=== PATIENT | female | born 1965 | race Caucasian/White ===

== ENCOUNTER 2016-05-18 10:35 | Inpatient (IN) | payer BC, OTHER ==
[~2016-05-18] VITALS: Ht 167.6 cm; Wt 77.1 kg
[2016-05-18 11:41] LABS: BASO # 0.1 x10^3/uL (0.0-0.2); BASO % 1 % (0-3); EOS % 2 % (0-3); HEMATOCRIT 38.7 % (36.0-47.0); HEMOGLOBIN 13.3 g/dL (12.0-15.5); LYMPH # 2.3 x10^3/uL (1.0-4.8); LYMPH % 21 % (24-48); MEAN CORPUSCULAR HEMOGLOBIN 33 pg (25-35); MEAN CORPUSCULAR HGB CONC 34 g/dL (31-37); MEAN CORPUSCULAR VOLUME 95 fL (79-100); MONO % 11 % (0-9); NEUT % 65 % (31-73); PLATELET COUNT 240 x10^3/uL (140-400); RED BLOOD COUNT 4.08 x10^6/uL (3.50-5.40); RED CELL DISTRIBUTION WIDTH 13.8 % (11.5-14.5)
[2016-05-18 11:42] LABS: BILIRUBIN,URINE NEGATIVE (NEG); GLUCOSE,URINE 250 mg/dL (NEG); NITRITE,URINE NEGATIVE (NEG); PH,URINE 6.5; PROTEIN,URINE NEGATIVE (NEG-TRACE)
[2016-05-18] MEDS ORDERED: IV NORMAL SALINE 1000ML BAG 1,000 ML IV ONE (11:45)
[2016-05-18] MEDS ORDERED: FENTANYL PF 100 MCG/2 ML VIAL. IV ONE (11:45)
[2016-05-18] MEDS ORDERED: METOCLOPRAMIDE HCL 10 MG/2 ML VIAL. IV ONE (11:45)
[2016-05-18 11:52] LABS: BACTERIA,URINE MANY /HPF (0-FEW); SQUAMOUS EPITHELIAL CELL,UR FEW /LPF
[2016-05-18 11:58] LABS: CALCIUM 10.1 mg/dL (8.5-10.1); CREATININE 0.6 mg/dL (0.6-1.0); GFR 106.7; POTASSIUM 3.8 mmol/L (3.5-5.1)
--- NOTE | 2016-05-18 11:58 | EKG ---
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
[2016-05-18 12:06] LABS: ALBUMIN 3.5 g/dL (3.4-5.0); ALBUMIN/GLOBULIN RATIO 0.6 (1.0-1.7); TOTAL BILIRUBIN 0.9 mg/dL (0.2-1.0); TOTAL PROTEIN 9.1 g/dL (6.4-8.2)
[2016-05-18 12:07] LABS: NEG OBC UR NEG; POS OBC UR POS
[2016-05-18] MEDS ORDERED: IOHEXOL 300 MG/ML 75 ML VIAL IV ONE (12:15)
--- NOTE | 2016-05-18 12:16 | PHYS DOC ---
Past Medical History Past Medical History: CAD, Diabetes-Type II, Hypertension, Migraines Past Surgical History: Other Additional Past Surgical Histo: heart stent, ovarian cyst Alcohol Use: Heavy Drug Use: None Adult General Chief Complaint Chief Complaint: ABDOMINAL PAIN HPI HPI Patient is a 50 year old male presents emergency department stating that she developed left upper quadrant abdominal pain at 10:30 last night. She denies any nausea or vomiting. She states the pain is a sharp pain that is just in the left upper quadrant she denies any radiation. She has not taken anything to help with the pain or discomfort. She states that she has had the pain in the past approximately 3 years ago but does not know what the diagnosis was. She does state she was hospitalized for it although it was not here. Patient denies any history of pancreatitis she denies any history of any abdominal issues. Patient does state that she's had an ovarian cyst in the past. Patient denies any further fever, chills she does state her last bowel movement was yesterday. Review of Systems Review of Systems Constitutional: Denies fever or chills [] Eyes: Denies change in visual acuity, redness, or eye pain [] HENT: Denies nasal congestion or sore throat [] Respiratory: Denies cough or shortness of breath [] Cardiovascular: No additional information not addressed in HPI [] GI:abdominal pain,denies nausea, vomiting, bloody stools or diarrhea [] : Denies dysuria or hematuria [] Musculoskeletal: Denies back pain or joint pain [] Integument: Denies rash or skin lesions [] Neurologic: Denies headache, focal weakness or sensory changes [] Current Medications Current Medications Current Medications Medications (Trade) Dose Ordered Sig/Ana Start Time Stop Time Status Last Admin Dose Admin Dicyclomine HCl (Bentyl) 10 mg 1X ONCE 05/18/16 14:00 05/18/16 14:01 DC 05/18/16 14:11 10 MG Fentanyl Citrate (Fentanyl 2ml Vial) 50 mcg PRN Q15MIN PRN 05/18/16 12:30 05/19/16 12:29 Info (Do NOT chart on this entry -- for MONITORING) 1 each PRN DAILY PRN 05/18/16 12:30 05/20/16 12:29 Iohexol (Omnipaque 300 Mg/ml) 75 ml 1X ONCE 05/18/16 12:15 05/18/16 12:16 DC 05/18/16 12:34 75 ML Metoclopramide HCl (Reglan) 10 mg 1X ONCE 05/18/16 11:45 05/18/16 11:46 DC 05/18/16 11:48 10 MG Sodium Chloride (Iv Sodium Chloride 0.9% 1000ml Bag) 1,000 ml @ 1,000 mls/hr 1X ONCE 05/18/16 11:45 05/18/16 12:44 DC 05/18/16 11:46 1,000 MLS/HR Allergies Allergies Allergies Coded Allergies Type Severity Reaction Last Updated Verified No Known Drug Allergies 08/12/14 No Physical Exam Physical Exam Constitutional: Well developed, well nourished, no acute distress, non-toxic appearance. [] HENT: Normocephalic, atraumatic, bilateral external ears normal, oropharynx moist, no oral exudates, nose normal. [] Eyes: PERRLA, EOMI, conjunctiva normal, no discharge. [] Neck: Normal range of motion, no tenderness, supple, no stridor. [] Cardiovascular:Heart rate regular rhythm, no murmur [] Lungs & Thorax: Bilateral breath sounds clear to auscultation [] Abdomen: Bowel sounds hypoactive, soft, and realized abdominal discomfort although increased tenderness noted in the left upper quadrant, no masses, no pulsatile masses. She was also noted to have guarding with no rebound tenderness noted. She does appear to be distended Skin: Warm, dry, no erythema, no rash. [] Back: No tenderness Extremities: No tenderness, no cyanosis, no clubbing, ROM intact, no edema. [] Neurologic: Alert and oriented X 3, normal motor function, normal sensory function, no focal deficits noted. [] Psychologic: Affect normal, judgement normal, mood normal. [] Current Patient Data Vital Signs Vital Signs Date Time Temp Pulse Resp B/P Pulse Ox O2 Delivery O2 Flow Rate FiO2 05/18/16 15:00 86 14 146/69 99 Room Air 05/18/16 10:41 97.7 97.7 Lab Values Laboratory Tests Test 05/18/16 10:58 05/18/16 11:05 White Blood Count 11.0x10^3/uL (4.0-11.0) Red Blood Count 4.08x10^6/uL (3.50-5.40) Hemoglobin 13.3g/dL (12.0-15.5) Hematocrit 38.7% (36.0-47.0) Mean Corpuscular Volume 95fL (79-100) Mean Corpuscular Hemoglobin 33pg (25-35) Mean Corpuscular Hemoglobin Concent 34g/dL (31-37) Red Cell Distribution Width 13.8% (11.5-14.5) Platelet Count 240x10^3/uL (140-400) Neutrophils (%) (Auto) 65% (31-73) Lymphocytes (%) (Auto) 21% (24-48) L Monocytes (%) (Auto) 11% (0-9) H Eosinophils (%) (Auto) 2% (0-3) Basophils (%) (Auto) 1% (0-3) Neutrophils # (Auto) 7.1x10^3uL (1.8-7.7) Lymphocytes # (Auto) 2.3x10^3/uL (1.0-4.8) Monocytes # (Auto) 1.2x10^3/uL (0.0-1.1) H Eosinophils # (Auto) 0.2x10^3/uL (0.0-0.7) Basophils # (Auto) 0.1x10^3/uL (0.0-0.2) Sodium Level 132mmol/L (136-145) L Potassium Level 3.8mmol/L (3.5-5.1) Chloride Level 93mmol/L (98-107) L Carbon Dioxide Level 30mmol/L (21-32) Anion Gap 9 (6-14) Blood Urea Nitrogen 7mg/dL (7-20) Creatinine 0.6mg/dL (0.6-1.0) Estimated GFR (Cockcroft-Gault) 106.7 BUN/Creatinine Ratio 12 (6-20) Glucose Level 248mg/dL (70-99) H Calcium Level 10.1mg/dL (8.5-10.1) Total Bilirubin 0.9mg/dL (0.2-1.0) Aspartate Amino Transferase (AST) 65U/L (15-37) H Alanine Aminotransferase (ALT) 48U/L (14-59) Alkaline Phosphatase 105U/L (46-116) Total Protein 9.1g/dL (6.4-8.2) H Albumin 3.5g/dL (3.4-5.0) Albumin/Globulin Ratio 0.6 (1.0-1.7) L Amylase Level 28U/L (25-115) Lipase 225U/L (73-393) Urine Collection Type Unknown Urine Color Yellow Urine Clarity Clear Urine pH 6.5 Urine Specific [place] 1.010 Urine Protein Negativemg/dL (NEG-TRACE) Urine Glucose (UA) 250mg/dL (NEG) Urine Ketones (Stick) Negativemg/dL (NEG) Urine Blood Moderate (NEG) Urine Nitrite Negative (NEG) Urine Bilirubin Negative (NEG) Urine Urobilinogen Dipstick 1.0mg/dL (0.2 mg/dL) Urine Leukocyte Esterase Trace (NEG) Urine RBC 1-2/HPF (0-2) Urine WBC 5-10/HPF (0-4) Urine Squamous Epithelial Cells Few/LPF Urine Bacteria Many/HPF (0-FEW) Urine Mucus Slight/LPF Urine Test Negative (NEG) Laboratory Tests 05/18/16 10:58 Laboratory Tests 05/18/16 10:58 EKG EKG [] Radiology/Procedures Radiology/Procedures [] [facility] [address] [place], [place] [id number] IMAGING REPORT Signed PATIENT: CAROLYN LU ACCOUNT: [id number] : 1965 LOCATION: ER AGE: 50 SEX: F EXAM STATUS: REG ER ORD. PHYSICIAN: ANY HASTINGS APRN REASON: abdominal pain with tenderness left upper quad PROCEDURE: ABD PELV W/ IV CONTRAST ONLY Indication: Severe left upper quadrant pain beginning last night. Technique: Axial images and coronal and sagittal reformatted images are provided. 75 mL of intravenous Omnipaque 300 was administered without complication. No comparison is available. One or more of the following individualized dose reduction techniques were utilized for this examination: 1. Automated exposure control 2. Adjustment of the mA and/or kV according to patient size 3. Use of iterative reconstruction technique Findings: There is atelectasis in the lung bases. There is no pleural effusion. Heart is upper limits of normal in size. Coronary artery calcifications are noted. There is fatty infiltration of an enlarged liver. Gallbladder is unremarkable. Spleen measures 12.5 cm oblique craniocaudal. Pancreas and right adrenal are unremarkable. Left adrenal nodule measures 12 mm in size. There is nonspecific stranding in the perinephric fat. There is a probable cyst in the upper pole of the right kidney measuring 14 mm. There is atheromatous disease in the abdominal aorta without aneurysm. Lack of oral contrast limits evaluation of bowel. There is no small bowel obstruction or mural thickening. Colon is unremarkable. Normal appendix is noted. Bladder is unremarkable. There is no adnexal mass. Tampon is present. Calcified phleboliths are noted. There are degenerative changes in the spine. Impression: 1. Fatty infiltration of an enlarged liver. 2. Borderline splenomegaly. 3. Coronary artery calcifications. Course & Med Decision Making Course & Med Decision Making Pertinent Labs and Imaging studies reviewed. (See chart for details) [id number] Mclain will continue with patient's care. She is aware of the lab results. She is aware the pending CT. I assumed care of this patient as stated from nurse practitioner Any. On reevaluation, patient continues to complain of left upper quadrant abdominal pain, with some mild abdominal distention. CT of abdomen and pelvis obtained, not reveal any evidence of acutely concerning findings. Patient's laboratory studies were otherwise not significantly concerning. I did discuss these things the patient, patient's age she still sprinting pain, she received oral medication the ED, and reevaluation she continues to complain of significant discomfort. She states that she had a similar episode several years ago at [facility], and was evaluated by GI over she is not certain what findings were identified. She states that they did not find a specific cause and cannot recall which was given. Patient has not followed with GI since that time. Due to the patient's persistent discomfort, she is agreeable for [facility] and consultation with GI. Records were requested from [facility]. Findings as above were discussed with Dr. eBth of internal medicine, patient was accepted to her service as an an observation admission to the medical surgical floor, with symptom management with Toradol, IV fluids, antiemetics, and consultation with GI, bridge orders entered as stated. Isabelle Disclaimer Dragon Disclaimer This electronic medical record was generated, in whole or in part, using a voice recognition dictation system. Departure Impression: Primary Impression: Abdominal pain Disposition: 09 ADMITTED INPATIENT Admitting Physician: Other Condition: IMPROVED Referrals: NO PCP (PCP) Departure Departure Impression: Primary Impression: Abdominal pain Disposition: 09 ADMITTED INPATIENT Condition: IMPROVED Referrals: NO PCP (PCP) ANY HASTINGS NP May 18, 2016 12:16 MODESTO MCLAIN DO May 18, 2016 19:36
[2016-05-18] MEDS ORDERED: CONTRAST GIVEN MC PRN (12:30)
[2016-05-18] MEDS ORDERED: FENTANYL PF 100 MCG/2 ML VIAL. IV PRN (12:30)
--- NOTE | 2016-05-18 12:57 | RAD ---
Indication: Severe left upper quadrant pain beginning last night. Technique: Axial images and coronal and sagittal reformatted images are provided. 75 mL of intravenous Omnipaque 300 was administered without complication. No comparison is available. One or more of the following individualized dose reduction techniques were utilized for this examination: 1. Automated exposure control 2. Adjustment of the mA and/or kV according to patient size 3. Use of iterative reconstruction technique Findings: There is atelectasis in the lung bases. There is no pleural effusion. Heart is upper limits of normal in size. Coronary artery calcifications are noted. There is fatty infiltration of an enlarged liver. Gallbladder is unremarkable. Spleen measures 12.5 cm oblique craniocaudal. Pancreas and right adrenal are unremarkable. Left adrenal nodule measures 12 mm in size. There is nonspecific stranding in the perinephric fat. There is a probable cyst in the upper pole of the right kidney measuring 14 mm. There is atheromatous disease in the abdominal aorta without aneurysm. Lack of oral contrast limits evaluation of bowel. There is no small bowel obstruction or mural thickening. Colon is unremarkable. Normal appendix is noted. Bladder is unremarkable. There is no adnexal mass. Tampon is present. Calcified phleboliths are noted. There are degenerative changes in the spine. Impression: 1. Fatty infiltration of an enlarged liver. 2. Borderline splenomegaly. 3. Coronary artery calcifications.
[2016-05-18] MEDS ORDERED: DICYCLOMINE HCL 10 MG CAPSULE PO ONE (14:00)
[2016-05-18] MEDS ORDERED: ONDANSETRON PF 4 MG/2 ML VIAL. IV PRN (17:00)
[2016-05-18] MEDS ORDERED: KETOROLAC 15 MG/ML VIAL. IV PRN (17:00)
[2016-05-18] MEDS ORDERED: ACETAMINOPHEN 325 MG TABLET. PO PRN (17:00)
--- NOTE | 2016-05-18 17:20 | ACF ---
Admission Forms Criteria ABDOMINAL PAIN Clinical Indications for Admission to Inpatient Care (Place 'X' for any and all applicable criteria): Admission is indicated for ANY ONE of the following(1)(2)(3)(4)(5): [X]I. Inpatient admission required rather than observation care (Also use Abdominal Pain: Observation Care, as appropriate) because of ANY ONE of the following: [X]a) Severe pain requiring acute inpatient management [ ]b) Identification of etiology/finding that requires inpatient care (eg, aortic dissection, free air) [ ]c) Absent bowel sounds with complete ileus(6) [ ]d) Suspected toxic megacolon [ ]e) Severe electrolyte abnormalities requiring inpatient care [ ]f) High fever or infection requiring inpatient admission as indicated by ANY ONE of following(7)(8): [ ] i) Appropriate outpatient or observational care antimicrobial treatment unavailable, not effective, or not feasible [ ] ii) Documented bacteremia [ ] iii) Temperature > 104.9 degrees F (oral) [ ] iv) T >103.1 F (oral) or < 96.8 F(rectal) that does not respond to all emergency treatment measures [ ]g) Signs of intestinal obstruction [B] [ ]h) Hemodynamic instability [ ]i) IV fluid to replace significant ongoing losses (greater than 3 L/m2 per day) (12)(13) [ ]j) Percutaneous or open drainage (eg, abscess, biliary tract ) procedures [ ]k) Parenteral nutrition regimen that must be implemented on inpatient basis [ ]l) Other condition,treatment or monitoring requiring inpatient admission. [ ]II. Peritoneal signs present [ ]III. Surgery needed that cannot be performed on an ambulatory basis. [ ]IV. Evaluation requires patient to not eat or drink for extended period ( eg, more than 24 hours). [ ]V. Contraindications and/or Inappropriate clinical situations for Observational Care in patients with abdominal pain, when ANY ONE of the following is required: [ ]a) Thorough evaluation is required to prevent catastrophic events due to delays in diagnosing (e.g.Mesenteric ischemia) 1,3 [ ]b) Patient with severe pathology or with chronic symptoms unlikely to improve in the ED stay (3) [ ]. General contraindications and/or Inappropriate clinical situations for Observational Care in patients with abdominal pain, when ANY ONE of the following is required: [ ]a) Prediction of prolongation of LOS based on ANY ONE of the following may be considered as a contraindication for observational care 2, 3, 4, 5, 6, 7, 8, 9, 10, 11 [ ]i) Age > 65 yrs. [ ]ii) Patient arriving by ambulance [ ]iii) Patient with high acuity [ ]iv) Patient requiring vital sign monitoring [ ]v) Patient on IV medication [ ]b) Systolic blood pressures 180mmHg 3,12 [ ]c) Patient with altered mental status including delirium and other alteration of consciousness, (3) [ ]d) Patient whose discharge disposition will be to a custodial home or rehabilitation home should not be managed in Emergency Department Observation Unit. CMS rule requires 3 days hospital stay before such placement.3,13 [ ]e) Patient with failure to thrive due to broad array of etiologies 3,16,17 [ ]f) Inability to ambulate 3,14 Extended stay beyond goal length of stay may be needed for(2)(3): [ ]a) Persistent abdominal pain with suspected intra-abdominal process [ ]b) Diagnosed condition requiring continued stay (e.g., pancreatitis, complicated diverticulitis) [ ]c) Surgery (e.g., colectomy) The original [facility] content created by [employer] has been revised. The portions of the content which have been revised are identified through the use of italic text or in bold, and [facility] has neither reviewed nor approved the modified material.All other unmodified content is copyright [employer]. Please see references footnoted in the original [facility] edition 2016 Admission Criteria Met?: Yes NELSON RAMIREZ May 18, 2016 17:20
[2016-05-18 20:30] VITALS: BP 130/72
[2016-05-18] MEDS: LORAZEPAM 1 MG TABLET. PO SCH (21:30)
--- NOTE | 2016-05-18 22:54 | HP ---
ADMIT DATE: 05/18/2016 CHIEF COMPLAINT: Left upper quadrant abdominal pain. HISTORY OF PRESENT ILLNESS: The patient is a 50-year-old woman with history of diabetes mellitus, CAD, hypertension who presented to the Emergency Room with left upper quadrant pain, which started late last night. She relates that it is in the left upper quadrant, sharp, stabbing, unrelenting, but not accompanied by nausea, vomiting or diarrhea. She denies any recent fevers or chills. She actually had a similar episode 3-5 years ago when she was admitted to an outside facility. She relates that extensive workup was undertaken then without finding of any specific cause. Symptoms then essentially abated by themselves. On further questioning, the patient admits to regular alcohol use, her partner actually explained that she drinks about a gallon a week, which she minimizes. She is also a smoker, but denies any other drugs. PAST MEDICAL HISTORY: CAD, status post stent placement in 2003, has not had any followup since. Hypertension, not taking any medications. Diabetes, which she qualifies as borderline, but does not monitor blood sugars nor takes medications. She does admit to migraines, has a history of ovarian cyst. FAMILY HISTORY: Positive for heart disease and COPD. SOCIAL HISTORY: Smokes about a pack a day, drinks excessively per spouse, one gallon of rum a week. 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 ALLERGIES: No known drug allergies. MEDICATIONS AT HOME: None. REVIEW OF SYSTEMS: Positive as per HPI. Denies any nausea, vomiting, diarrhea. No fevers, chills, no respiratory symptoms. Rest of organ system review is negative. PHYSICAL EXAMINATION: VITAL SIGNS: From today show a blood pressure of 143/65, heart rate of 86, respiratory rate at 19. She is afebrile. GENERAL: This is a 50-year-old woman, ill-appearing, alert and oriented, in no acute distress. HEENT: Shows no scleral icterus. NECK: Supple. LUNGS: Clear bilaterally. HEART: Regular rate and rhythm. ABDOMEN: Massively distended, soft. Tenderness to palpation in the left upper quadrant, some in the left lower. No organomegaly or masses could be appreciated. EXTREMITIES: Show no edema. SKIN: Warm, soft and dry without any rash. LABORATORY DATA: CBC with a WBC of 11.0, hemoglobin 13.3, platelets of 240 and normal differential. BUN and creatinine of 7 and 0.6, sodium at 132, potassium at 3.8, glucose 248, AST of 65, ALT of 48. Total bilirubin and alkaline phosphatase within normal limits. Total protein at 9.1 and albumin of 3.5. Amylase and lipase within normal limits. Urine dip shows 5-10 wbc and many bacteria, question dirty collection. IMAGING STUDIES: CT of the abdomen and pelvis reveals fatty infiltration of an enlarged liver, borderline splenomegaly. There is an adrenal nodule of 12 mm on the left, nonspecific stranding in the perinephric fat, probable cyst in the right kidney, atheromatous disease in the abdominal aorta without aneurysm as well as coronary artery calcifications noted. ASSESSMENT AND PLAN: The patient is a 50-year-old alcoholic who is noncompliant with her regimen including for potentially serious diseases of diabetes mellitus and heart disease. She presents now with abdominal pain. 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 I will place her on PPI, put her on clear liquids for the time being and Carafate to her regimen. For her diabetes mellitus, we will obtain hemoglobin A1c as baseline. We will start her with insulin for now. Potential of switching to p.o. Heart disease is known by history as well as evident on CT. Should be on a beta letty and ZO inhibitor for kidney and heart protection as well as hypertension. We will get those started in the morning. She does drink alcohol excessively. States she never has had withdrawal symptoms including at her hospitalization several years ago. Nevertheless, we will be cautious and start prophylactic benzodiazepine. CUAUHTEMOC BAZAN MD DR: BRINA/luann JOB#: [id number] / [id number] TAYLOR
[2016-05-18 23:00] VITALS: BP 126/68
[2016-05-19] MEDS: SUCRALFATE 1 GM TABLET. PO SCH ×5 (00:39→20:14)
[2016-05-19] MEDS: CEFTRIAXONE SODIUM 2 GM in IV NORMAL SALINE 100ML 100 ML IV SCH ×2 (00:39→20:15)
[2016-05-19] MEDS: LORAZEPAM 1 MG TABLET. PO SCH ×4 (03:30→20:24)
[2016-05-19 03:42] VITALS: BP 134/79
[2016-05-19 07:00] VITALS: BP 118/67
[2016-05-19 07:08] LABS: BASO # 0.1 x10^3/uL (0.0-0.2); BASO % 1 % (0-3); EOS % 2 % (0-3); HEMATOCRIT 35.3 % (36.0-47.0); HEMOGLOBIN 11.7 g/dL (12.0-15.5); LYMPH # 1.9 x10^3/uL (1.0-4.8); LYMPH % 23 % (24-48); MEAN CORPUSCULAR HEMOGLOBIN 32 pg (25-35); MEAN CORPUSCULAR HGB CONC 33 g/dL (31-37); MEAN CORPUSCULAR VOLUME 97 fL (79-100); MONO % 11 % (0-9); NEUT % 63 % (31-73); PLATELET COUNT 205 x10^3/uL (140-400); RED BLOOD COUNT 3.64 x10^6/uL (3.50-5.40); RED CELL DISTRIBUTION WIDTH 13.9 % (11.5-14.5); WHITE BLOOD COUNT 8.3 x10^3/uL (4.0-11.0)
[2016-05-19 07:28] LABS: CALCIUM 8.8 mg/dL (8.5-10.1); CREATININE 0.6 mg/dL (0.6-1.0); GFR 106.7; POTASSIUM 4.6 mmol/L (3.5-5.1)
[2016-05-19] MEDS: PANTOPRAZOLE 40 MG TABLET. PO SCH ×2 (08:42→16:30)
[2016-05-19] MEDS: MULTIVIT INFUSN,ADULT 4,VIT K 10 ML, THIAMINE 100 MG, FOLIC ACID 1 MG in IV NORMAL SALI... IV SCH (09:48)
--- NOTE | 2016-05-19 10:35 | PDOC2 ---
ASHISH DURAN 05/19/16 1035: GI CONSULT Reason For Consult: Abd pain HPI: HPI: 50 y/o female admitted through ER w/ LUQ pain. H/o similar (but less severe pain) ~3 years ago, reports MRI and CT at [facility] were unrevealing. Pain recurred on 05/16. Worse w/ moving, coughing, and deep breaths. H/o occasional heartburn related to eating tomatoes/red sauce, relieved w/ Tums PRN. Has been bloated lately and using Gas-X. Denies n/v, diarrhea, constipation, weight loss , change in appetite, hematochezia, melena. CT w/ fatty liver, borderline splenomegaly. Labs fairly unrevealing. Kept to clear liquids, started on PPI and Carafate. PMH: PMH: CAD w/ stent years ago, HTN, DM, heartburn, ovarian cystectomy FH: Family History: No pertinent hx (denies GI cancers) Social History: Smoke: <1 pack per day ALCOHOL: other (tells me 2 drinks daily (rum)) Drugs: None ROS: GEN: Denies fevers, chills, sweats HEENT: Denies blurred vision, sore throat CV: Denies chest pain RESP: Denies shortness of air, cough GI: Per HPI : Denies hematuria, dysuria ENDO: Denies weight changes NEURO: Denies confusion, dizziness MSK: Denies weakness, joint pain/swelling SKIN: Denies jaundice, pruritus VItals: Vitals: Vital Signs Date Time Temp Pulse Resp B/P Pulse Ox O2 Delivery O2 Flow Rate FiO2 05/19/16 07:00 98.2 80 14 118/67 96 Room Air 98.2 Labs: Labs: Laboratory Tests Test 05/18/16 10:58 05/18/16 11:05 05/18/16 20:31 05/19/16 06:40 White Blood Count 11.0x10^3/uL (4.0-11.0) 8.3x10^3/uL (4.0-11.0) Red Blood Count 4.08x10^6/uL (3.50-5.40) 3.64x10^6/uL (3.50-5.40) Hemoglobin 13.3g/dL (12.0-15.5) 11.7g/dL (12.0-15.5) Hematocrit 38.7% (36.0-47.0) 35.3% (36.0-47.0) Mean Corpuscular Volume 95fL (79-100) 97fL (79-100) Mean Corpuscular Hemoglobin 33pg (25-35) 32pg (25-35) Mean Corpuscular Hemoglobin Concent 34g/dL (31-37) 33g/dL (31-37) Red Cell Distribution Width 13.8% (11.5-14.5) 13.9% (11.5-14.5) Platelet Count 240x10^3/uL (140-400) 205x10^3/uL (140-400) Neutrophils (%) (Auto) 65% (31-73) 63% (31-73) Lymphocytes (%) (Auto) 21% (24-48) 23% (24-48) Monocytes (%) (Auto) 11% (0-9) 11% (0-9) Eosinophils (%) (Auto) 2% (0-3) 2% (0-3) Basophils (%) (Auto) 1% (0-3) 1% (0-3) Neutrophils # (Auto) 7.1x10^3uL (1.8-7.7) 5.3x10^3uL (1.8-7.7) Lymphocytes # (Auto) 2.3x10^3/uL (1.0-4.8) 1.9x10^3/uL (1.0-4.8) Monocytes # (Auto) 1.2x10^3/uL (0.0-1.1) 0.9x10^3/uL (0.0-1.1) Eosinophils # (Auto) 0.2x10^3/uL (0.0-0.7) 0.2x10^3/uL (0.0-0.7) Basophils # (Auto) 0.1x10^3/uL (0.0-0.2) 0.1x10^3/uL (0.0-0.2) Sodium Level 132mmol/L (136-145) 138mmol/L (136-145) Potassium Level 3.8mmol/L (3.5-5.1) 4.6mmol/L (3.5-5.1) Chloride Level 93mmol/L (98-107) 101mmol/L (98-107) Carbon Dioxide Level 30mmol/L (21-32) 27mmol/L (21-32) Anion Gap 9 (6-14) 10 (6-14) Blood Urea Nitrogen 7mg/dL (7-20) 11mg/dL (7-20) Creatinine 0.6mg/dL (0.6-1.0) 0.6mg/dL (0.6-1.0) Estimated GFR (Cockcroft-Gault) 106.7 106.7 BUN/Creatinine Ratio 12 (6-20) Glucose Level 248mg/dL (70-99) 186mg/dL (70-99) Calcium Level 10.1mg/dL (8.5-10.1) 8.8mg/dL (8.5-10.1) Total Bilirubin 0.9mg/dL (0.2-1.0) Aspartate Amino Transf (AST/SGOT) 65U/L (15-37) Alanine Aminotransferase (ALT/SGPT) 48U/L (14-59) Alkaline Phosphatase 105U/L (46-116) Total Protein 9.1g/dL (6.4-8.2) Albumin 3.5g/dL (3.4-5.0) Albumin/Globulin Ratio 0.6 (1.0-1.7) Amylase Level 28U/L (25-115) Lipase 225U/L (73-393) Urine Collection Type Unknown Urine Color Yellow Urine Clarity Clear Urine pH 6.5 Urine Specific [place] 1.010 Urine Protein Negativemg/dL (NEG-TRACE) Urine Glucose (UA) 250mg/dL (NEG) Urine Ketones (Stick) Negativemg/dL (NEG) Urine Blood Moderate (NEG) Urine Nitrite Negative (NEG) Urine Bilirubin Negative (NEG) Urine Urobilinogen Dipstick 1.0mg/dL (0.2 mg/dL) Urine Leukocyte Esterase Trace (NEG) Urine RBC 1-2/HPF (0-2) Urine WBC 5-10/HPF (0-4) Urine Squamous Epithelial Cells Few/LPF Urine Bacteria Many/HPF (0-FEW) Urine Mucus Slight/LPF Urine Test Negative (NEG) Glucose (Fingerstick) 163mg/dL (70-99) Test 05/19/16 07:46 Glucose (Fingerstick) 187mg/dL (70-99) Allergies: Coded Allergies: No Known Drug Allergies (Unverified , 05/19/16) Medications: Current Medications Medications (Trade) Dose Ordered Sig/Ana Route PRN Reason Start Time Stop Time Status Last Admin Dose Admin Sodium Chloride (Iv Sodium Chloride 0.9% 1000ml Bag) 1,000 ml @ 1,000 mls/hr 1X ONCE IV 05/18/16 11:45 05/18/16 12:44 DC 05/18/16 11:46 Metoclopramide HCl (Reglan) 10 mg 1X ONCE IV 05/18/16 11:45 05/18/16 11:46 DC 05/18/16 11:48 Fentanyl Citrate (Fentanyl 2ml Vial) 50 mcg 1X ONCE IV 05/18/16 11:45 05/18/16 11:46 DC 05/18/16 11:47 Iohexol (Omnipaque 300 Mg/ml) 75 ml 1X ONCE IV 05/18/16 12:15 05/18/16 12:16 DC 05/18/16 12:34 Dicyclomine HCl (Bentyl) 10 mg 1X ONCE PO 05/18/16 14:00 05/18/16 14:01 DC 05/18/16 14:11 Sucralfate (Carafate) 1 gm QIDACHS PO 05/18/16 21:30 05/19/16 08:42 Pantoprazole Sodium 40 mg 40 mg BIDAC PO 05/19/16 07:30 05/19/16 08:42 Multivitamins/ Thiamine HCl/ Folic Acid/Sodium Chloride (Infuvite Adult/ Iv Sodium Chloride 0.9% 1000ml Bag) 1,011.2 ml @ 100 mls/ hr DAILY IV 05/19/16 09:00 05/24/16 08:59 05/19/16 09:48 Lorazepam 2 mg 2 mg Q6H PO 05/18/16 21:30 05/20/16 03:31 05/19/16 09:48 Ceftriaxone Sodium/Sodium Chloride (Rocephin/Iv Sodium Chloride 0.9% 100ml) 100 ml @ 200 mls/hr Q24H IV 05/18/16 21:30 05/19/16 00:39 Imaging: Imaging: CT A/P w/ IV contrast Impression: 1. Fatty infiltration of an enlarged liver. 2. Borderline splenomegaly. 3. Coronary artery calcifications. PE: GEN: NAD HEENT: Atraumatic, PERRL LUNGS: CTAB - hesitancy noted, deep breathing increases pain HEART: RRR ABD: NABS, S/ND, LUQ tenderness - particularly left sternum under ribs EXTREMITY: No edema SKIN: No rashes, no jaundice NEURO/PSYCH: A & O 3 A/P: A/P: LUQ pain -occurred 3 years ago, says CT and MRI @ [facility] unrevealing -recurred 05/16/16 -worse w/ deep breathing, moving, coughing -labs and CT as above Heartburn, bloating -occasional -uses Tums, Gas-X PRN -- Agree w/ PPI, Carafate. Plan for EGD this evening to r/o upper GI source. NPO. D/w RN, GI lab. REGLA BURNS MD 05/19/16 1804: GI CONSULT Allergies: Coded Allergies: No Known Drug Allergies (Unverified , 05/19/16) ASHISH DURAN May 19, 2016 10:35 REGLA BURNS MD May 19, 2016 18:04
[2016-05-19 11:00] VITALS: BP 131/88
--- NOTE | 2016-05-19 12:57 | PDOC ---
PROGRESS NOTES Chief Complaint Chief Complaint Abdominal pain History of Present Illness History of Present Illness No acute events overnight. Patient is resting comfortably as evaluation begins. She reports she is feeling slightly better. Vitals Vitals Vital Signs Date Time Temp Pulse Resp B/P Pulse Ox O2 Delivery O2 Flow Rate FiO2 05/19/16 11:00 98.2 93 14 131/88 98 Room Air 98.2 Physical Exam General: Alert, Cooperative, No acute distress Heart: Regular rate, No murmurs Lungs: Clear, Other (no wheezing) Abdomen: Normal bowel sounds, Soft, Other (mild tenderness to palpation, no guarding ) Extremities: No cyanosis, No edema Skin: No rashes, No significant lesion Labs LABS Laboratory Tests Test 05/18/16 20:31 05/19/16 06:40 05/19/16 07:46 05/19/16 11:48 Glucose (Fingerstick) 163mg/dL (70-99) 187mg/dL (70-99) 183mg/dL (70-99) White Blood Count 8.3x10^3/uL (4.0-11.0) Red Blood Count 3.64x10^6/uL (3.50-5.40) Hemoglobin 11.7g/dL (12.0-15.5) Hematocrit 35.3% (36.0-47.0) Mean Corpuscular Volume 97fL (79-100) Mean Corpuscular Hemoglobin 32pg (25-35) Mean Corpuscular Hemoglobin Concent 33g/dL (31-37) Red Cell Distribution Width 13.9% (11.5-14.5) Platelet Count 205x10^3/uL (140-400) Neutrophils (%) (Auto) 63% (31-73) Lymphocytes (%) (Auto) 23% (24-48) Monocytes (%) (Auto) 11% (0-9) Eosinophils (%) (Auto) 2% (0-3) Basophils (%) (Auto) 1% (0-3) Neutrophils # (Auto) 5.3x10^3uL (1.8-7.7) Lymphocytes # (Auto) 1.9x10^3/uL (1.0-4.8) Monocytes # (Auto) 0.9x10^3/uL (0.0-1.1) Eosinophils # (Auto) 0.2x10^3/uL (0.0-0.7) Basophils # (Auto) 0.1x10^3/uL (0.0-0.2) Sodium Level 138mmol/L (136-145) Potassium Level 4.6mmol/L (3.5-5.1) Chloride Level 101mmol/L (98-107) Carbon Dioxide Level 27mmol/L (21-32) Anion Gap 10 (6-14) Blood Urea Nitrogen 11mg/dL (7-20) Creatinine 0.6mg/dL (0.6-1.0) Estimated GFR (Cockcroft-Gault) 106.7 Glucose Level 186mg/dL (70-99) Calcium Level 8.8mg/dL (8.5-10.1) Review of Systems Review of Systems Denies fever or chills. Denies chest pain and shortness of breath. Assessment and Plan Assessmemt and Plan Problems Medical Problems: (1) Abdominal pain Status: Acute ASSESSMENT: Abdominal pain, no acute intra-abdominal process, likely alcoholic gastritis Fatty infiltration of liver Splenomegaly Diabetes Mellitus CAD HTN Alcohol abuse PLAN: GI has been consulted, their recommendations are appreciated Continue antibiotics Continue to monitor for alcohol withdrawal, Ativan is available if needed Trending daily labs PT/OT eval and treat Encourage alcohol cessation Problems: Comment Review of Relevant I have reviewed the following items mike (where applicable) has been applied. Labs Laboratory Tests Test 05/18/16 10:58 05/18/16 11:05 05/18/16 20:31 05/19/16 06:40 White Blood Count 11.0x10^3/uL (4.0-11.0) 8.3x10^3/uL (4.0-11.0) Red Blood Count 4.08x10^6/uL (3.50-5.40) 3.64x10^6/uL (3.50-5.40) Hemoglobin 13.3g/dL (12.0-15.5) 11.7g/dL (12.0-15.5) Hematocrit 38.7% (36.0-47.0) 35.3% (36.0-47.0) Mean Corpuscular Volume 95fL (79-100) 97fL (79-100) Mean Corpuscular Hemoglobin 33pg (25-35) 32pg (25-35) Mean Corpuscular Hemoglobin Concent 34g/dL (31-37) 33g/dL (31-37) Red Cell Distribution Width 13.8% (11.5-14.5) 13.9% (11.5-14.5) Platelet Count 240x10^3/uL (140-400) 205x10^3/uL (140-400) Neutrophils (%) (Auto) 65% (31-73) 63% (31-73) Lymphocytes (%) (Auto) 21% (24-48) 23% (24-48) Monocytes (%) (Auto) 11% (0-9) 11% (0-9) Eosinophils (%) (Auto) 2% (0-3) 2% (0-3) Basophils (%) (Auto) 1% (0-3) 1% (0-3) Neutrophils # (Auto) 7.1x10^3uL (1.8-7.7) 5.3x10^3uL (1.8-7.7) Lymphocytes # (Auto) 2.3x10^3/uL (1.0-4.8) 1.9x10^3/uL (1.0-4.8) Monocytes # (Auto) 1.2x10^3/uL (0.0-1.1) 0.9x10^3/uL (0.0-1.1) Eosinophils # (Auto) 0.2x10^3/uL (0.0-0.7) 0.2x10^3/uL (0.0-0.7) Basophils # (Auto) 0.1x10^3/uL (0.0-0.2) 0.1x10^3/uL (0.0-0.2) Sodium Level 132mmol/L (136-145) 138mmol/L (136-145) Potassium Level 3.8mmol/L (3.5-5.1) 4.6mmol/L (3.5-5.1) Chloride Level 93mmol/L (98-107) 101mmol/L (98-107) Carbon Dioxide Level 30mmol/L (21-32) 27mmol/L (21-32) Anion Gap 9 (6-14) 10 (6-14) Blood Urea Nitrogen 7mg/dL (7-20) 11mg/dL (7-20) Creatinine 0.6mg/dL (0.6-1.0) 0.6mg/dL (0.6-1.0) Estimated GFR (Cockcroft-Gault) 106.7 106.7 BUN/Creatinine Ratio 12 (6-20) Glucose Level 248mg/dL (70-99) 186mg/dL (70-99) Calcium Level 10.1mg/dL (8.5-10.1) 8.8mg/dL (8.5-10.1) Total Bilirubin 0.9mg/dL (0.2-1.0) Aspartate Amino Transf (AST/SGOT) 65U/L (15-37) Alanine Aminotransferase (ALT/SGPT) 48U/L (14-59) Alkaline Phosphatase 105U/L (46-116) Total Protein 9.1g/dL (6.4-8.2) Albumin 3.5g/dL (3.4-5.0) Albumin/Globulin Ratio 0.6 (1.0-1.7) Amylase Level 28U/L (25-115) Lipase 225U/L (73-393) Urine Collection Type Unknown Urine Color Yellow Urine Clarity Clear Urine pH 6.5 Urine Specific [place] 1.010 Urine Protein Negativemg/dL (NEG-TRACE) Urine Glucose (UA) 250mg/dL (NEG) Urine Ketones (Stick) Negativemg/dL (NEG) Urine Blood Moderate (NEG) Urine Nitrite Negative (NEG) Urine Bilirubin Negative (NEG) Urine Urobilinogen Dipstick 1.0mg/dL (0.2 mg/dL) Urine Leukocyte Esterase Trace (NEG) Urine RBC 1-2/HPF (0-2) Urine WBC 5-10/HPF (0-4) Urine Squamous Epithelial Cells Few/LPF Urine Bacteria Many/HPF (0-FEW) Urine Mucus Slight/LPF Urine Test Negative (NEG) Glucose (Fingerstick) 163mg/dL (70-99) Test 05/19/16 07:46 05/19/16 11:48 Glucose (Fingerstick) 187mg/dL (70-99) 183mg/dL (70-99) Laboratory Tests Test 05/18/16 20:31 05/19/16 06:40 05/19/16 07:46 05/19/16 11:48 Glucose (Fingerstick) 163mg/dL (70-99) 187mg/dL (70-99) 183mg/dL (70-99) White Blood Count 8.3x10^3/uL (4.0-11.0) Red Blood Count 3.64x10^6/uL (3.50-5.40) Hemoglobin 11.7g/dL (12.0-15.5) Hematocrit 35.3% (36.0-47.0) Mean Corpuscular Volume 97fL (79-100) Mean Corpuscular Hemoglobin 32pg (25-35) Mean Corpuscular Hemoglobin Concent 33g/dL (31-37) Red Cell Distribution Width 13.9% (11.5-14.5) Platelet Count 205x10^3/uL (140-400) Neutrophils (%) (Auto) 63% (31-73) Lymphocytes (%) (Auto) 23% (24-48) Monocytes (%) (Auto) 11% (0-9) Eosinophils (%) (Auto) 2% (0-3) Basophils (%) (Auto) 1% (0-3) Neutrophils # (Auto) 5.3x10^3uL (1.8-7.7) Lymphocytes # (Auto) 1.9x10^3/uL (1.0-4.8) Monocytes # (Auto) 0.9x10^3/uL (0.0-1.1) Eosinophils # (Auto) 0.2x10^3/uL (0.0-0.7) Basophils # (Auto) 0.1x10^3/uL (0.0-0.2) Sodium Level 138mmol/L (136-145) Potassium Level 4.6mmol/L (3.5-5.1) Chloride Level 101mmol/L (98-107) Carbon Dioxide Level 27mmol/L (21-32) Anion Gap 10 (6-14) Blood Urea Nitrogen 11mg/dL (7-20) Creatinine 0.6mg/dL (0.6-1.0) Estimated GFR (Cockcroft-Gault) 106.7 Glucose Level 186mg/dL (70-99) Calcium Level 8.8mg/dL (8.5-10.1) Medications Current Medications Sodium Chloride (Iv Sodium Chloride 0.9% 1000ml Bag) 1,000 ml @ 1,000 mls/hr 1X ONCE IV Last administered on 05/18/16 11:46; Start 05/18/16 at 11:45; Stop 05/18/16 at 12:44; Status DC Metoclopramide HCl (Reglan) 10 mg 1X ONCE IV Last administered on 05/18/16 11 :48; Start 05/18/16 at 11:45; Stop 05/18/16 at 11:46; Status DC Fentanyl Citrate (Fentanyl 2ml Vial) 50 mcg 1X ONCE IV Last administered on 11:47; Start 05/18/16 at 11:45; Stop 05/18/16 at 11:46; Status DC Iohexol (Omnipaque 300 Mg/ml) 75 ml 1X ONCE IV Last administered on 05/18/16 12:34; Start 05/18/16 at 12:15; Stop 05/18/16 at 12:16; Status DC Info (Do NOT chart on this entry -- for MONITORING) 1 each PRN DAILY PRN MC SEE COMMENTS; Start 05/18/16 at 12:30; Stop 05/20/16 at 12:29 Fentanyl Citrate (Fentanyl 2ml Vial) 50 mcg PRN Q15MIN PRN IV PAIN GREATER THAN 3/10; Start 05/18/16 at 12:30; Stop 05/19/16 at 12:29; Status DC Dicyclomine HCl (Bentyl) 10 mg 1X ONCE PO Last administered on 05/18/16 14:11 ; Start 05/18/16 at 14:00; Stop 05/18/16 at 14:01; Status DC Ondansetron HCl (Zofran) 4 mg PRN Q8HRS PRN IV NAUSEA/VOMITING; Start 05/18/16 at 17:00; Stop 05/19/16 at 16:59 Acetaminophen (Tylenol) 650 mg PRN Q4HRS PRN PO FEVER; Start 05/18/16 at 17:00 ; Stop 05/19/16 at 16:59 Ketorolac Tromethamine (Toradol) 10 mg PRN QID PRN IV PAIN; Start 05/18/16 at 17:00; Stop 05/23/16 at 16:59 Sucralfate (Carafate) 1 gm QIDACHS PO Last administered on 05/19/16 08:42; Start 05/18/16 at 21:30 Pantoprazole Sodium 40 mg 40 mg BIDAC PO Last administered on 05/19/16 08:42; Start 05/19/16 at 07:30 Multivitamins/ Thiamine HCl/ Folic Acid/Sodium Chloride (Infuvite Adult/ Iv Sodium Chloride 0.9% 1000ml Bag) 1,011.2 ml @ 100 mls/ hr DAILY IV Last administered on 05/19/16 09:48; Start 05/19/16 at 09:00; Stop 05/24/16 at 08:59 Lorazepam 2 mg 2 mg Q6H PO Last administered on 05/19/16 09:48; Start at 21:30; Stop 05/20/16 at 03:31 Ceftriaxone Sodium/Sodium Chloride (Rocephin/Iv Sodium Chloride 0.9% 100ml) 100 ml @ 200 mls/hr Q24H IV Last administered on 05/19/16 00:39; Start 05/18/16 at 21:30 Vitals/I & O Vital Sign - Last 24 Hours 05/18/16 05/18/16 05/18/16 05/18/16 13:00 14:00 15:00 16:00 Pulse 84 84 86 92 Resp 24 16 14 22 B/P 146/66 143/64 146/69 126/65 Pulse Ox 96 97 99 99 O2 Delivery Room Air Room Air Room Air Room Air 05/18/16 05/18/16 05/18/16 05/18/16 16:30 17:42 18:42 19:42 Pulse 90 98 94 86 Resp 18 18 19 19 B/P 142/67 139/65 122/56 143/65 Pulse Ox 98 96 97 96 O2 Delivery Room Air Room Air Room Air Room Air 05/18/16 05/18/16 05/18/16 05/19/16 20:30 21:50 23:00 03:42 Temp 98.5 98.3 98.8 98.5 98.3 98.8 Pulse 95 90 86 Resp 20 20 18 B/P 130/72 126/68 134/79 Pulse Ox 96 96 95 O2 Delivery Room Air Room Air Room Air Room Air 05/19/16 05/19/16 07:00 11:00 Temp 98.2 98.2 98.2 98.2 Pulse 80 93 Resp 14 14 B/P 118/67 131/88 Pulse Ox 96 98 O2 Delivery Room Air Room Air Intake and Output 05/18/16 05/18/16 05/19/16 15:00 23:00 07:00 Intake Total 1000 ml Balance 1000 ml MICHELLE LIRA III DO May 19, 2016 12:56
[2016-05-19 15:11] VITALS: BP 144/71
[2016-05-19] MEDS ORDERED: IV RINGERS,LACTATED 1000ML 1,000 ML IV ONE (17:00)
[2016-05-19] MEDS ORDERED: PROPOFOL 20 ML IV ONE (17:59)
--- NOTE | 2016-05-19 18:13 | PDOC4 ---
Operative Note Operative Note EGD Meds Propofol per anesthesia Pre-op dx LUGQ abd pain post-op dx non-erosive gastritis Plan hepatobiliary imaging tomorrow REGLA BURNS MD May 19, 2016 18:12
[2016-05-19 19:00] VITALS: BP 122/79
[2016-05-19 23:00] VITALS: BP 131/73
[2016-05-20] VITALS (11 sets, daily range): BP systolic 120–168; BP diastolic 65–88
[2016-05-20] MEDS: LORAZEPAM 1 MG TABLET. PO SCH (03:30)
[2016-05-20 05:19] LABS: BASO # 0.1 x10^3/uL (0.0-0.2); BASO % 2 % (0-3); EOS % 3 % (0-3); HEMATOCRIT 34.8 % (36.0-47.0); HEMOGLOBIN 11.7 g/dL (12.0-15.5); LYMPH # 1.8 x10^3/uL (1.0-4.8); LYMPH % 24 % (24-48); MEAN CORPUSCULAR HEMOGLOBIN 32 pg (25-35); MEAN CORPUSCULAR HGB CONC 34 g/dL (31-37); MEAN CORPUSCULAR VOLUME 96 fL (79-100); MONO % 11 % (0-9); NEUT % 60 % (31-73); PLATELET COUNT 209 x10^3/uL (140-400); RED BLOOD COUNT 3.64 x10^6/uL (3.50-5.40); RED CELL DISTRIBUTION WIDTH 13.7 % (11.5-14.5); WHITE BLOOD COUNT 7.4 x10^3/uL (4.0-11.0)
[2016-05-20 05:31] LABS: CALCIUM 8.7 mg/dL (8.5-10.1); CREATININE 0.5 mg/dL (0.6-1.0); GFR 131.7; POTASSIUM 4.1 mmol/L (3.5-5.1)
[2016-05-20 08:30] LABS: HEP A IGM ABDY Negative (Negative)
[2016-05-20] MEDS: PANTOPRAZOLE 40 MG TABLET. PO SCH ×2 (08:40→16:27)
[2016-05-20] MEDS: SUCRALFATE 1 GM TABLET. PO SCH ×4 (08:40→20:48)
[2016-05-20] MEDS: MULTIVIT INFUSN,ADULT 4,VIT K 10 ML, THIAMINE 100 MG, FOLIC ACID 1 MG in IV NORMAL SALI... IV SCH (09:00)
--- NOTE | 2016-05-20 09:15 | RAD ---
Examination: Ultrasound abdomen complete History: History of left upper quadrant pain for 2 days Comparison: None available Findings: The pancreas is poorly visualized. There is increased echogenicity noted throughout the liver likely hepatic steatosis. The liver measures 22.3 cm. The visualized aorta, IVC appear patent. No evidence of gallstones identified The gallbladder wall thickness measures 2.3 mm. The common bile duct measures 3.4 mm in transverse dimension. The spleen measures 13.6 cm in length. In the right kidney, there is a small 1.3 cm cystic fracture which is difficult to characterize. The right kidney measures 11.2 x 5.0 x 4.9 cm the left kidney measures 12.2 x 5.4 x 6.2 cm. Impression: 1. Increased echogenicity noted throughout the liver likely hepatic steatosis. 2. Hepatosplenomegaly. 3. 1.3 cm cystic structure identified superior pole of the right kidney probably a cyst. However characterization is difficult on this examination.
--- NOTE | 2016-05-20 09:58 | PDOC ---
PROGRESS NOTES Chief Complaint Chief Complaint Abdominal pain History of Present Illness History of Present Illness Patient had EGD performed last night, non-erosive gastritis was found. GI has ordered an abdominal U/S and hepatobiliary scan. Patient is resting comfortably and has no complaints. Vitals Vitals Vital Signs Date Time Temp Pulse Resp B/P Pulse Ox O2 Delivery O2 Flow Rate FiO2 05/20/16 07:00 97.9 80 16 128/65 96 Room Air 97.9 05/19/16 20:00 2.0 Physical Exam General: Alert, No acute distress Heart: Regular rate, Normal S1, Normal S2 Lungs: Clear, Other (no wheezing) Abdomen: Soft, Other (mild tenderness to palpation, no guarding ) Extremities: No cyanosis, No edema Skin: No rashes, No significant lesion Labs LABS Laboratory Tests Test 05/19/16 11:48 05/19/16 21:33 05/20/16 05:08 05/20/16 07:38 Glucose (Fingerstick) 183mg/dL (70-99) 195mg/dL (70-99) 164mg/dL (70-99) White Blood Count 7.4x10^3/uL (4.0-11.0) Red Blood Count 3.64x10^6/uL (3.50-5.40) Hemoglobin 11.7g/dL (12.0-15.5) Hematocrit 34.8% (36.0-47.0) Mean Corpuscular Volume 96fL (79-100) Mean Corpuscular Hemoglobin 32pg (25-35) Mean Corpuscular Hemoglobin Concent 34g/dL (31-37) Red Cell Distribution Width 13.7% (11.5-14.5) Platelet Count 209x10^3/uL (140-400) Neutrophils (%) (Auto) 60% (31-73) Lymphocytes (%) (Auto) 24% (24-48) Monocytes (%) (Auto) 11% (0-9) Eosinophils (%) (Auto) 3% (0-3) Basophils (%) (Auto) 2% (0-3) Neutrophils # (Auto) 4.4x10^3uL (1.8-7.7) Lymphocytes # (Auto) 1.8x10^3/uL (1.0-4.8) Monocytes # (Auto) 0.8x10^3/uL (0.0-1.1) Eosinophils # (Auto) 0.2x10^3/uL (0.0-0.7) Basophils # (Auto) 0.1x10^3/uL (0.0-0.2) Sodium Level 141mmol/L (136-145) Potassium Level 4.1mmol/L (3.5-5.1) Chloride Level 104mmol/L (98-107) Carbon Dioxide Level 27mmol/L (21-32) Anion Gap 10 (6-14) Blood Urea Nitrogen 10mg/dL (7-20) Creatinine 0.5mg/dL (0.6-1.0) Estimated GFR (Cockcroft-Gault) 131.7 Glucose Level 157mg/dL (70-99) Calcium Level 8.7mg/dL (8.5-10.1) Review of Systems Review of Systems Denies chest pain and shortness of breath. Denies fever or chills. Assessment and Plan Assessmemt and Plan Problems Medical Problems: (1) Abdominal pain Status: Acute ASSESSMENT: Abdominal pain, no acute intra-abdominal process, likely alcoholic gastritis Fatty infiltration of liver Splenomegaly Diabetes Mellitus CAD HTN Alcohol abuse PLAN: GI workup in progress, their recommendations are appreciated. Continue antibiotics, preliminary urine culture growing E. coli Continue to monitor for alcohol withdrawal, Ativan is available if needed Trending daily labs PT/OT eval and treat Encourage alcohol cessation Problems: Comment Review of Relevant I have reviewed the following items mike (where applicable) has been applied. Labs Laboratory Tests Test 05/18/16 10:58 05/18/16 11:05 05/18/16 20:31 05/19/16 06:40 White Blood Count 11.0x10^3/uL (4.0-11.0) 8.3x10^3/uL (4.0-11.0) Red Blood Count 4.08x10^6/uL (3.50-5.40) 3.64x10^6/uL (3.50-5.40) Hemoglobin 13.3g/dL (12.0-15.5) 11.7g/dL (12.0-15.5) Hematocrit 38.7% (36.0-47.0) 35.3% (36.0-47.0) Mean Corpuscular Volume 95fL (79-100) 97fL (79-100) Mean Corpuscular Hemoglobin 33pg (25-35) 32pg (25-35) Mean Corpuscular Hemoglobin Concent 34g/dL (31-37) 33g/dL (31-37) Red Cell Distribution Width 13.8% (11.5-14.5) 13.9% (11.5-14.5) Platelet Count 240x10^3/uL (140-400) 205x10^3/uL (140-400) Neutrophils (%) (Auto) 65% (31-73) 63% (31-73) Lymphocytes (%) (Auto) 21% (24-48) 23% (24-48) Monocytes (%) (Auto) 11% (0-9) 11% (0-9) Eosinophils (%) (Auto) 2% (0-3) 2% (0-3) Basophils (%) (Auto) 1% (0-3) 1% (0-3) Neutrophils # (Auto) 7.1x10^3uL (1.8-7.7) 5.3x10^3uL (1.8-7.7) Lymphocytes # (Auto) 2.3x10^3/uL (1.0-4.8) 1.9x10^3/uL (1.0-4.8) Monocytes # (Auto) 1.2x10^3/uL (0.0-1.1) 0.9x10^3/uL (0.0-1.1) Eosinophils # (Auto) 0.2x10^3/uL (0.0-0.7) 0.2x10^3/uL (0.0-0.7) Basophils # (Auto) 0.1x10^3/uL (0.0-0.2) 0.1x10^3/uL (0.0-0.2) Sodium Level 132mmol/L (136-145) 138mmol/L (136-145) Potassium Level 3.8mmol/L (3.5-5.1) 4.6mmol/L (3.5-5.1) Chloride Level 93mmol/L (98-107) 101mmol/L (98-107) Carbon Dioxide Level 30mmol/L (21-32) 27mmol/L (21-32) Anion Gap 9 (6-14) 10 (6-14) Blood Urea Nitrogen 7mg/dL (7-20) 11mg/dL (7-20) Creatinine 0.6mg/dL (0.6-1.0) 0.6mg/dL (0.6-1.0) Estimated GFR (Cockcroft-Gault) 106.7 106.7 BUN/Creatinine Ratio 12 (6-20) Glucose Level 248mg/dL (70-99) 186mg/dL (70-99) Calcium Level 10.1mg/dL (8.5-10.1) 8.8mg/dL (8.5-10.1) Total Bilirubin 0.9mg/dL (0.2-1.0) Aspartate Amino Transf (AST/SGOT) 65U/L (15-37) Alanine Aminotransferase (ALT/SGPT) 48U/L (14-59) Alkaline Phosphatase 105U/L (46-116) Total Protein 9.1g/dL (6.4-8.2) Albumin 3.5g/dL (3.4-5.0) Albumin/Globulin Ratio 0.6 (1.0-1.7) Amylase Level 28U/L (25-115) Lipase 225U/L (73-393) Urine Collection Type Unknown Urine Color Yellow Urine Clarity Clear Urine pH 6.5 Urine Specific [place] 1.010 Urine Protein Negativemg/dL (NEG-TRACE) Urine Glucose (UA) 250mg/dL (NEG) Urine Ketones (Stick) Negativemg/dL (NEG) Urine Blood Moderate (NEG) Urine Nitrite Negative (NEG) Urine Bilirubin Negative (NEG) Urine Urobilinogen Dipstick 1.0mg/dL (0.2 mg/dL) Urine Leukocyte Esterase Trace (NEG) Urine RBC 1-2/HPF (0-2) Urine WBC 5-10/HPF (0-4) Urine Squamous Epithelial Cells Few/LPF Urine Bacteria Many/HPF (0-FEW) Urine Mucus Slight/LPF Urine Test Negative (NEG) Glucose (Fingerstick) 163mg/dL (70-99) Hepatitis A IgM Antibody Negative (Negative) Hepatitis B Surface Antigen Negative (Negative) Hepatitis B Core IgM Antibody Negative (Negative) Hepatitis C Antibody <0.1s/co ratio (0.0-0.9) Test 05/19/16 07:46 05/19/16 11:48 05/19/16 21:33 05/20/16 05:08 Glucose (Fingerstick) 187mg/dL (70-99) 183mg/dL (70-99) 195mg/dL (70-99) White Blood Count 7.4x10^3/uL (4.0-11.0) Red Blood Count 3.64x10^6/uL (3.50-5.40) Hemoglobin 11.7g/dL (12.0-15.5) Hematocrit 34.8% (36.0-47.0) Mean Corpuscular Volume 96fL (79-100) Mean Corpuscular Hemoglobin 32pg (25-35) Mean Corpuscular Hemoglobin Concent 34g/dL (31-37) Red Cell Distribution Width 13.7% (11.5-14.5) Platelet Count 209x10^3/uL (140-400) Neutrophils (%) (Auto) 60% (31-73) Lymphocytes (%) (Auto) 24% (24-48) Monocytes (%) (Auto) 11% (0-9) Eosinophils (%) (Auto) 3% (0-3) Basophils (%) (Auto) 2% (0-3) Neutrophils # (Auto) 4.4x10^3uL (1.8-7.7) Lymphocytes # (Auto) 1.8x10^3/uL (1.0-4.8) Monocytes # (Auto) 0.8x10^3/uL (0.0-1.1) Eosinophils # (Auto) 0.2x10^3/uL (0.0-0.7) Basophils # (Auto) 0.1x10^3/uL (0.0-0.2) Sodium Level 141mmol/L (136-145) Potassium Level 4.1mmol/L (3.5-5.1) Chloride Level 104mmol/L (98-107) Carbon Dioxide Level 27mmol/L (21-32) Anion Gap 10 (6-14) Blood Urea Nitrogen 10mg/dL (7-20) Creatinine 0.5mg/dL (0.6-1.0) Estimated GFR (Cockcroft-Gault) 131.7 Glucose Level 157mg/dL (70-99) Calcium Level 8.7mg/dL (8.5-10.1) Test 05/20/16 07:38 Glucose (Fingerstick) 164mg/dL (70-99) Laboratory Tests Test 05/19/16 11:48 05/19/16 21:33 05/20/16 05:08 05/20/16 07:38 Glucose (Fingerstick) 183mg/dL (70-99) 195mg/dL (70-99) 164mg/dL (70-99) White Blood Count 7.4x10^3/uL (4.0-11.0) Red Blood Count 3.64x10^6/uL (3.50-5.40) Hemoglobin 11.7g/dL (12.0-15.5) Hematocrit 34.8% (36.0-47.0) Mean Corpuscular Volume 96fL (79-100) Mean Corpuscular Hemoglobin 32pg (25-35) Mean Corpuscular Hemoglobin Concent 34g/dL (31-37) Red Cell Distribution Width 13.7% (11.5-14.5) Platelet Count 209x10^3/uL (140-400) Neutrophils (%) (Auto) 60% (31-73) Lymphocytes (%) (Auto) 24% (24-48) Monocytes (%) (Auto) 11% (0-9) Eosinophils (%) (Auto) 3% (0-3) Basophils (%) (Auto) 2% (0-3) Neutrophils # (Auto) 4.4x10^3uL (1.8-7.7) Lymphocytes # (Auto) 1.8x10^3/uL (1.0-4.8) Monocytes # (Auto) 0.8x10^3/uL (0.0-1.1) Eosinophils # (Auto) 0.2x10^3/uL (0.0-0.7) Basophils # (Auto) 0.1x10^3/uL (0.0-0.2) Sodium Level 141mmol/L (136-145) Potassium Level 4.1mmol/L (3.5-5.1) Chloride Level 104mmol/L (98-107) Carbon Dioxide Level 27mmol/L (21-32) Anion Gap 10 (6-14) Blood Urea Nitrogen 10mg/dL (7-20) Creatinine 0.5mg/dL (0.6-1.0) Estimated GFR (Cockcroft-Gault) 131.7 Glucose Level 157mg/dL (70-99) Calcium Level 8.7mg/dL (8.5-10.1) Microbiology 05/18/16 Urine Culture - Preliminary, Resulted 05/18/16 Urine Culture Result 1 (JARVIS) - Preliminary, Resulted Medications Current Medications Sodium Chloride (Iv Sodium Chloride 0.9% 1000ml Bag) 1,000 ml @ 1,000 mls/hr 1X ONCE IV Last administered on 05/18/16 11:46; Start 05/18/16 at 11:45; Stop 05/18/16 at 12:44; Status DC Metoclopramide HCl (Reglan) 10 mg 1X ONCE IV Last administered on 05/18/16 11 :48; Start 05/18/16 at 11:45; Stop 05/18/16 at 11:46; Status DC Fentanyl Citrate (Fentanyl 2ml Vial) 50 mcg 1X ONCE IV Last administered on 11:47; Start 05/18/16 at 11:45; Stop 05/18/16 at 11:46; Status DC Iohexol (Omnipaque 300 Mg/ml) 75 ml 1X ONCE IV Last administered on 05/18/16 12:34; Start 05/18/16 at 12:15; Stop 05/18/16 at 12:16; Status DC Info (Do NOT chart on this entry -- for MONITORING) 1 each PRN DAILY PRN MC SEE COMMENTS; Start 05/18/16 at 12:30; Stop 05/20/16 at 12:29 Fentanyl Citrate (Fentanyl 2ml Vial) 50 mcg PRN Q15MIN PRN IV PAIN GREATER THAN 3/10; Start 05/18/16 at 12:30; Stop 05/19/16 at 12:29; Status DC Dicyclomine HCl (Bentyl) 10 mg 1X ONCE PO Last administered on 05/18/16 14:11 ; Start 05/18/16 at 14:00; Stop 05/18/16 at 14:01; Status DC Ondansetron HCl (Zofran) 4 mg PRN Q8HRS PRN IV NAUSEA/VOMITING; Start 05/18/16 at 17:00; Stop 05/19/16 at 16:59; Status DC Acetaminophen (Tylenol) 650 mg PRN Q4HRS PRN PO FEVER; Start 05/18/16 at 17:00 ; Stop 05/19/16 at 16:59; Status DC Ketorolac Tromethamine (Toradol) 10 mg PRN QID PRN IV PAIN Last administered on 05/19/16 20:17; Start 05/18/16 at 17:00; Stop 05/23/16 at 16:59 Sucralfate (Carafate) 1 gm QIDACHS PO Last administered on 05/20/16 08:40; Start 05/18/16 at 21:30 Pantoprazole Sodium 40 mg 40 mg BIDAC PO Last administered on 05/20/16 08:40; Start 05/19/16 at 07:30 Multivitamins/ Thiamine HCl/ Folic Acid/Sodium Chloride (Infuvite Adult/ Iv Sodium Chloride 0.9% 1000ml Bag) 1,011.2 ml @ 100 mls/ hr DAILY IV Last administered on 05/19/16 09:48; Start 05/19/16 at 09:00; Stop 05/24/16 at 08:59 Lorazepam 2 mg 2 mg Q6H PO Last administered on 05/19/16 09:48; Start at 21:30; Stop 05/20/16 at 03:31; Status DC Ceftriaxone Sodium 2 gm/ Sodium Chloride 100 ml @ 200 mls/hr Q24H IV Last administered on 05/19/16 20:15; Start 05/18/16 at 21:30 Lactated Ringer's 1,000 ml @ 75 mls/hr 1X ONCE IV Last administered on 16:42; Start 05/19/16 at 17:00; Stop 05/20/16 at 06:19; Status DC Propofol (Diprivan) 20 ml @ As Directed STK-MED ONCE IV ; Start 05/19/16 at 17: 59; Stop 05/19/16 at 18:00; Status DC Vitals/I & O Vital Sign - Last 24 Hours 05/19/16 05/19/16 05/19/1605/19/17 11:00 15:11 16:37 18:12 Temp 98.2 98.2 98.3 97.4 98.2 98.2 98.3 97.4 Pulse 93 84 94 88 Resp 16 B/P 131/88 144/71 120/60 Pulse Ox 98 97 94 99 O2 Delivery Room Air Room Air Nasal Cannula O2 Flow Rate 2 05/19/16 05/19/16 05/19/16 05/19/16 18:26 18:35 19:00 20:00 Temp 98.4 98.4 Pulse 88 91 90 Resp B/P 143/65 129/63 122/79 Pulse Ox 96 94 95 O2 Delivery Room Air Room Air Room Air Room Air O2 Flow Rate 2.0 05/19/16 05/20/16 05/20/16 23:00 03:00 07:00 Temp 98.8 98.5 97.9 98.8 98.5 97.9 Pulse 89 86 80 Resp B/P 131/73 120/76 128/65 Pulse Ox 97 95 96 O2 Delivery Room Air Room Air Room Air Intake and Output 05/19/16 05/19/16 05/20/16 15:00 23:00 07:00 Intake Total 300 ml 200 ml 1100 ml Output Total 750 ml 200 ml Balance 300 ml -550 ml 900 ml MICHELLE LIRA III DO May 20, 2016 09:58
[2016-05-20] MEDS ORDERED: NORMAL SALINE IV ONE (11:00)
[2016-05-20] MEDS ORDERED: SINCALIDE IV ONE (11:00)
--- NOTE | 2016-05-20 12:07 | PDOC ---
G I PROGRESS NOTE Reason for Follow-up Abd pain Subjective Feeling better. On table for HIDA EF Physical Exam Lungs clear CV S1 S2 ABD +BS, soft, +Epigastric/LUQ tenderness Review of Relevant I have reviewed the following items mike (where applicable) has been applied. Labs Laboratory Tests Test 05/18/16 20:31 05/19/16 06:40 05/19/16 07:46 05/19/16 11:48 Glucose (Fingerstick) 163mg/dL (70-99) 187mg/dL (70-99) 183mg/dL (70-99) White Blood Count 8.3x10^3/uL (4.0-11.0) Red Blood Count 3.64x10^6/uL (3.50-5.40) Hemoglobin 11.7g/dL (12.0-15.5) Hematocrit 35.3% (36.0-47.0) Mean Corpuscular Volume 97fL (79-100) Mean Corpuscular Hemoglobin 32pg (25-35) Mean Corpuscular Hemoglobin Concent 33g/dL (31-37) Red Cell Distribution Width 13.9% (11.5-14.5) Platelet Count 205x10^3/uL (140-400) Neutrophils (%) (Auto) 63% (31-73) Lymphocytes (%) (Auto) 23% (24-48) Monocytes (%) (Auto) 11% (0-9) Eosinophils (%) (Auto) 2% (0-3) Basophils (%) (Auto) 1% (0-3) Neutrophils # (Auto) 5.3x10^3uL (1.8-7.7) Lymphocytes # (Auto) 1.9x10^3/uL (1.0-4.8) Monocytes # (Auto) 0.9x10^3/uL (0.0-1.1) Eosinophils # (Auto) 0.2x10^3/uL (0.0-0.7) Basophils # (Auto) 0.1x10^3/uL (0.0-0.2) Sodium Level 138mmol/L (136-145) Potassium Level 4.6mmol/L (3.5-5.1) Chloride Level 101mmol/L (98-107) Carbon Dioxide Level 27mmol/L (21-32) Anion Gap 10 (6-14) Blood Urea Nitrogen 11mg/dL (7-20) Creatinine 0.6mg/dL (0.6-1.0) Estimated GFR (Cockcroft-Gault) 106.7 Glucose Level 186mg/dL (70-99) Calcium Level 8.8mg/dL (8.5-10.1) Hepatitis A IgM Antibody Negative (Negative) Hepatitis B Surface Antigen Negative (Negative) Hepatitis B Core IgM Antibody Negative (Negative) Hepatitis C Antibody <0.1s/co ratio (0.0-0.9) Test 05/19/16 21:33 05/20/16 05:08 05/20/16 07:38 Glucose (Fingerstick) 195mg/dL (70-99) 164mg/dL (70-99) White Blood Count 7.4x10^3/uL (4.0-11.0) Red Blood Count 3.64x10^6/uL (3.50-5.40) Hemoglobin 11.7g/dL (12.0-15.5) Hematocrit 34.8% (36.0-47.0) Mean Corpuscular Volume 96fL (79-100) Mean Corpuscular Hemoglobin 32pg (25-35) Mean Corpuscular Hemoglobin Concent 34g/dL (31-37) Red Cell Distribution Width 13.7% (11.5-14.5) Platelet Count 209x10^3/uL (140-400) Neutrophils (%) (Auto) 60% (31-73) Lymphocytes (%) (Auto) 24% (24-48) Monocytes (%) (Auto) 11% (0-9) Eosinophils (%) (Auto) 3% (0-3) Basophils (%) (Auto) 2% (0-3) Neutrophils # (Auto) 4.4x10^3uL (1.8-7.7) Lymphocytes # (Auto) 1.8x10^3/uL (1.0-4.8) Monocytes # (Auto) 0.8x10^3/uL (0.0-1.1) Eosinophils # (Auto) 0.2x10^3/uL (0.0-0.7) Basophils # (Auto) 0.1x10^3/uL (0.0-0.2) Sodium Level 141mmol/L (136-145) Potassium Level 4.1mmol/L (3.5-5.1) Chloride Level 104mmol/L (98-107) Carbon Dioxide Level 27mmol/L (21-32) Anion Gap 10 (6-14) Blood Urea Nitrogen 10mg/dL (7-20) Creatinine 0.5mg/dL (0.6-1.0) Estimated GFR (Cockcroft-Gault) 131.7 Glucose Level 157mg/dL (70-99) Calcium Level 8.7mg/dL (8.5-10.1) Laboratory Tests Test 05/19/16 21:33 05/20/16 05:08 05/20/16 07:38 Glucose (Fingerstick) 195mg/dL (70-99) 164mg/dL (70-99) White Blood Count 7.4x10^3/uL (4.0-11.0) Red Blood Count 3.64x10^6/uL (3.50-5.40) Hemoglobin 11.7g/dL (12.0-15.5) Hematocrit 34.8% (36.0-47.0) Mean Corpuscular Volume 96fL (79-100) Mean Corpuscular Hemoglobin 32pg (25-35) Mean Corpuscular Hemoglobin Concent 34g/dL (31-37) Red Cell Distribution Width 13.7% (11.5-14.5) Platelet Count 209x10^3/uL (140-400) Neutrophils (%) (Auto) 60% (31-73) Lymphocytes (%) (Auto) 24% (24-48) Monocytes (%) (Auto) 11% (0-9) Eosinophils (%) (Auto) 3% (0-3) Basophils (%) (Auto) 2% (0-3) Neutrophils # (Auto) 4.4x10^3uL (1.8-7.7) Lymphocytes # (Auto) 1.8x10^3/uL (1.0-4.8) Monocytes # (Auto) 0.8x10^3/uL (0.0-1.1) Eosinophils # (Auto) 0.2x10^3/uL (0.0-0.7) Basophils # (Auto) 0.1x10^3/uL (0.0-0.2) Sodium Level 141mmol/L (136-145) Potassium Level 4.1mmol/L (3.5-5.1) Chloride Level 104mmol/L (98-107) Carbon Dioxide Level 27mmol/L (21-32) Anion Gap 10 (6-14) Blood Urea Nitrogen 10mg/dL (7-20) Creatinine 0.5mg/dL (0.6-1.0) Estimated GFR (Cockcroft-Gault) 131.7 Glucose Level 157mg/dL (70-99) Calcium Level 8.7mg/dL (8.5-10.1) Microbiology 05/18/16 Urine Culture - Preliminary, Resulted 05/18/16 Urine Culture Result 1 (JARVIS) - Preliminary, Resulted Medications Current Medications Sodium Chloride (Iv Sodium Chloride 0.9% 1000ml Bag) 1,000 ml @ 1,000 mls/hr 1X ONCE IV Last administered on 05/18/16 11:46; Start 05/18/16 at 11:45; Stop 05/18/16 at 12:44; Status DC Metoclopramide HCl (Reglan) 10 mg 1X ONCE IV Last administered on 05/18/16 11 :48; Start 05/18/16 at 11:45; Stop 05/18/16 at 11:46; Status DC Fentanyl Citrate (Fentanyl 2ml Vial) 50 mcg 1X ONCE IV Last administered on 11:47; Start 05/18/16 at 11:45; Stop 05/18/16 at 11:46; Status DC Iohexol (Omnipaque 300 Mg/ml) 75 ml 1X ONCE IV Last administered on 05/18/16 12:34; Start 05/18/16 at 12:15; Stop 05/18/16 at 12:16; Status DC Info (Do NOT chart on this entry -- for MONITORING) 1 each PRN DAILY PRN MC SEE COMMENTS; Start 05/18/16 at 12:30; Stop 05/20/16 at 12:29 Fentanyl Citrate (Fentanyl 2ml Vial) 50 mcg PRN Q15MIN PRN IV PAIN GREATER THAN 3/10; Start 05/18/16 at 12:30; Stop 05/19/16 at 12:29; Status DC Dicyclomine HCl (Bentyl) 10 mg 1X ONCE PO Last administered on 05/18/16 14:11 ; Start 05/18/16 at 14:00; Stop 05/18/16 at 14:01; Status DC Ondansetron HCl (Zofran) 4 mg PRN Q8HRS PRN IV NAUSEA/VOMITING; Start 05/18/16 at 17:00; Stop 05/19/16 at 16:59; Status DC Acetaminophen (Tylenol) 650 mg PRN Q4HRS PRN PO FEVER; Start 05/18/16 at 17:00 ; Stop 05/19/16 at 16:59; Status DC Ketorolac Tromethamine (Toradol) 10 mg PRN QID PRN IV PAIN Last administered on 05/19/16 20:17; Start 05/18/16 at 17:00; Stop 05/23/16 at 16:59 Sucralfate (Carafate) 1 gm QIDACHS PO Last administered on 05/20/16 08:40; Start 05/18/16 at 21:30 Pantoprazole Sodium 40 mg 40 mg BIDAC PO Last administered on 05/20/16 08:40; Start 05/19/16 at 07:30 Multivitamins/ Thiamine HCl/ Folic Acid/Sodium Chloride (Infuvite Adult/ Iv Sodium Chloride 0.9% 1000ml Bag) 1,011.2 ml @ 100 mls/ hr DAILY IV Last administered on 05/19/16 09:48; Start 05/19/16 at 09:00; Stop 05/24/16 at 08:59 Lorazepam 2 mg 2 mg Q6H PO Last administered on 05/19/16 09:48; Start at 21:30; Stop 05/20/16 at 03:31; Status DC Ceftriaxone Sodium 2 gm/ Sodium Chloride 100 ml @ 200 mls/hr Q24H IV Last administered on 05/19/16 20:15; Start 05/18/16 at 21:30 Lactated Ringer's 1,000 ml @ 75 mls/hr 1X ONCE IV Last administered on 16:42; Start 05/19/16 at 17:00; Stop 05/20/16 at 06:19; Status DC Propofol 20 ml @ As Directed STK-MED ONCE IV ; Start 05/19/16 at 17:59; Stop at 18:00; Status DC Sincalide/Sodium Chloride (Kinevac/Iv Sodium Chloride 0.9% 50ml) 30 ml @ 120 mls/hr 1X ONCE IV Last administered on 05/20/16t 11:31; Start 05/20/16 at 11: 00; Stop 05/20/16 at 11:14; Status DC Vitals/I & O Vital Sign - Last 24 Hours 05/19/16 05/19/16 05/19/16 05/19/16 15:11 16:37 18:12 18:26 Temp 98.2 98.3 97.4 98.2 98.3 97.4 Pulse 84 94 88 88 Resp 18 20 16 16 B/P 144/71 120/60 143/65 Pulse Ox 97 94 99 96 O2 Delivery Room Air Nasal Cannula Room Air O2 Flow Rate 2 05/19/16 05/19/16 05/19/16 05/19/16 18:35 19:00 20:00 23:00 Temp 98.4 98.8 98.4 98.8 Pulse 91 90 89 Resp 16 20 20 B/P 129/63 122/79 131/73 Pulse Ox 94 95 97 O2 Delivery Room Air Room Air Room Air Room Air O2 Flow Rate 2.0 05/20/16 05/20/16 05/20/16 03:00 07:00 08:20 Temp 98.5 97.9 98.5 97.9 Pulse 86 80 Resp 20 16 B/P 120/76 128/65 Pulse Ox 95 96 O2 Delivery Room Air Room Air Room Air O2 Flow Rate 2.0 Intake and Output 05/19/16 05/19/16 05/20/16 15:00 23:00 07:00 Intake Total 300 ml 200 ml 1100 ml Output Total 750 ml 200 ml Balance 300 ml -550 ml 900 ml Problem List Problems Medical Problems: (1) Abdominal pain Status: Acute Assessment Abd pain- with unrevelaing, EGD, await hepatobiliary imaging results, trial of po after REGLA Navas MD May 20, 2016 12:07
--- NOTE | 2016-05-20 12:47 | RAD ---
Radionuclide hepatobiliary scan with gallbladder ejection fraction, 05/20/2016: History: Abdominal pain Following IV injection of 5.5 mCi of technetium 99m Choletec there was prompt uptake of the radionuclide from the blood stream by the liver. The liver is enlarged. Gallbladder activity develops at 15 minutes. At 35 minutes there is increasing gallbladder activity without extension into the small bowel. At this point the patient experienced chest pain and the imaging was temporarily terminated. The chest pain resolved and additional static images were obtained at one hour showing extension of the activity into small bowel. The patient was then injected with 1.4 mcg of cholecystokinin and additional imaging performed. The gallbladder ejection fraction was calculated at 20%. 30-50% is considered to be the borderline low range. IMPRESSION: 1. Hepatomegaly. 2. No evidence of cystic duct or common bile duct obstruction. 3. Low gallbladder ejection fraction of 20%.
[2016-05-20] MEDS ORDERED: SEVOFLURANE 61 TO 120 MINUTES. IH ONE ×2 (13:38→18:17)
[2016-05-20] MEDS ORDERED: ROCURONIUM 50 MG/5 ML VIAL. ONE (13:39)
[2016-05-20] MEDS ORDERED: DEXAMETHASONE SOD PHOS 20 MG/5 ML VIAL. ONE ×4 (13:39→17:20)
[2016-05-20] MEDS ORDERED: PROPOFOL 20 ML IV ONE (13:39)
[2016-05-20] MEDS ORDERED: FENTANYL PF 100 MCG/2 ML VIAL. ONE (13:39)
[2016-05-20] MEDS ORDERED: MIDAZOLAM HCL 2 MG/2 ML VIAL. ONE (13:39)
[2016-05-20] MEDS ORDERED: LIDOCAINE 2% 100 MG/5 ML DISP.SYRIN. ONE (13:40)
[2016-05-20] MEDS ORDERED: ONDANSETRON PF 4 MG/2 ML VIAL. ONE (13:40)
[2016-05-20] MEDS ORDERED: ROCURONIUM 100 MG/10 ML VIAL. ONE (14:02)
[2016-05-20] MEDS ORDERED: FENTANYL PF 250 MCG/5 ML VIAL. ONE (14:04)
[2016-05-20] MEDS ORDERED: IV RINGERS,LACTATED 1000ML 1,000 ML IV SCH (14:42)
[2016-05-20] MEDS ORDERED: ALBUMIN HUMAN 5% 0 ML IV ONE (14:43)
[2016-05-20] MEDS ORDERED: FENTANYL PF 100 MCG/2 ML VIAL. IV PRN (14:45)
[2016-05-20] MEDS ORDERED: PROCHLORPERAZINE 10 MG/2 ML VIAL. IV PRN (14:45)
[2016-05-20] MEDS ORDERED: ONDANSETRON PF 4 MG/2 ML VIAL. IV PRN (14:45)
[2016-05-20] MEDS ORDERED: LIDOCAINE 1% 1 ML SYRINGE. ID PRN (14:45)
[2016-05-20] MEDS ORDERED: MORPHINE SULFATE 2 MG/ML DISP.SYRIN. IV PRN (14:45)
[2016-05-20] MEDS ORDERED: HYDROMORPHONE 2 MG/ML VIAL. IV PRN (14:45)
[2016-05-20] MEDS ORDERED: IOHEXOL 300 MG/ML 50 ML VIAL. ONE (16:17)
[2016-05-20] MEDS ORDERED: SURGICEL HEMOSTAT 4X8 EACH. ONE (16:17)
[2016-05-20] MEDS ORDERED: BUPIVAC MPF-EPI 0.5%-1:200000 30 ML VIAL. ONE (16:17)
--- NOTE | 2016-05-20 17:18 | PDOC ---
Provider Note Provider Note #[id number]--rjbkyce dictated. KYM FARR MD May 20, 2016 17:17
[2016-05-20] MEDS ORDERED: GLYCOPYRROLATE 1 MG/5 ML VIAL. ONE (18:17)
[2016-05-20] MEDS ORDERED: NEOSTIGMINE METHYLSULFATE 5 MG/5 ML SYRINGE. ONE (18:17)
--- NOTE | 2016-05-20 18:32 | PDOC ---
BRIEF OPERATIVE NOTE Pre-Op Diagnosis biliary dyskinesia cirrhosis lap myrna, ioc, lap core liver biopsy matheus carter ebl 75 ivf 500 danis well to rr stable KYM FARR MD May 20, 2016 18:32
[2016-05-20] MEDS: FENTANYL PF 100 MCG/2 ML VIAL. IV PRN ×2 (19:05→19:27)
[2016-05-20] MEDS: OXYCODONE IR 5 MG TABLET. PO PRN (20:49)
[2016-05-20] MEDS: CEFTRIAXONE SODIUM 2 GM in IV NORMAL SALINE 100ML 100 ML IV SCH (21:51)
[2016-05-21] MEDS: OXYCODONE IR 5 MG TABLET. PO PRN ×3 (02:53→18:16)
[2016-05-21 03:00] VITALS: BP 128/67
[2016-05-21 04:34] LABS: BASO % 0 % (0-3); EOS % 0 % (0-3); HEMATOCRIT 35.9 % (36.0-47.0); HEMOGLOBIN 11.7 g/dL (12.0-15.5); LYMPH # 1.5 x10^3/uL (1.0-4.8); LYMPH % 20 % (24-48); MEAN CORPUSCULAR HEMOGLOBIN 32 pg (25-35); MEAN CORPUSCULAR HGB CONC 33 g/dL (31-37); MEAN CORPUSCULAR VOLUME 98 fL (79-100); MONO % 7 % (0-9); NEUT % 74 % (31-73); PLATELET COUNT 229 x10^3/uL (140-400); RED BLOOD COUNT 3.67 x10^6/uL (3.50-5.40); RED CELL DISTRIBUTION WIDTH 13.9 % (11.5-14.5); WHITE BLOOD COUNT 7.8 x10^3/uL (4.0-11.0)
[2016-05-21 04:57] LABS: CALCIUM 8.4 mg/dL (8.5-10.1); CREATININE 0.6 mg/dL (0.6-1.0); GFR 106.7; POTASSIUM 4.5 mmol/L (3.5-5.1)
--- NOTE | 2016-05-21 06:35 | CONS ---
DATE OF CONSULTATION: 05/20/2016 CHIEF COMPLAINT: Abdominal pain. HISTORY OF PRESENT ILLNESS: The patient is a 50-year-old female who presents with epigastric and left upper quadrant abdominal pain since Tuesday, the pain has become severe. She describes it as a constant, stabbing pain. It is worse with coughing and moving. It does not radiate to her back. It is not accompanied by nausea and vomiting. It does occasionally worsen and is exacerbated by eating. This is a new pain for her. She denies chronic abdominal pain. She did have some pain with the PIPIDA scan. Her PIPIDA scan showed decreased gallbladder ejection fraction at 20%. Ultrasound was negative for stones. CT was otherwise unremarkable and EGD showed no pathology that would result in these types of symptoms. I was consulted by Dr. Murillo to consider cholecystectomy. The patient denies any increased physical activity or exercises that would have given her musculoskeletal/abdominal pain. She also denies any recent trauma or falls, which could result in musculoskeletal/abdominal pain. PAST MEDICAL HISTORY: 1. Coronary artery disease, status post cardiac stent placement x 2 in 2003. She says it has been about 2 years since she had a followup. 2. Hypertension. 3. Diabetes, borderline. 4. Headaches. PAST SURGICAL HISTORY: Ovarian cystectomy x 2. SOCIAL HISTORY: She does smoke about a pack a day and she drinks alcohol a fair amount as well. She is and employed. FAMILY HISTORY: Noncontributory to this illness. ALLERGIES: No known drug allergies. MEDICATIONS AT HOME: She said she stopped taking all of her medications at home. REVIEW OF SYSTEMS: CONSTITUTIONAL: Denies fevers, chills. EYES: Denies abrupt loss of vision or double vision. EARS, NOSE, MOUTH AND THROAT: Denies loss of hearing or ringing in the ears. CARDIOVASCULAR: Denies chest pain or heart palpitations. She can walk up a flight of stairs. They have stairs at the house and she has no trouble other than back pain in terms of walking up stairs. RESPIRATORY: Denies cough, shortness of breath. GASTROINTESTINAL: See HPI. GENITOURINARY: No dysuria or hematuria. HEMATOLOGIC: No easy bleeding or bruising. MUSCULOSKELETAL: No new myalgias or arthralgias. She does have chronic back pain. DERMATOLOGIC: No new skin rashes or lesions. PSYCHIATRIC: Denies depression or anxiety. NEUROLOGIC: Complains of occasional headache, but denies seizures. PHYSICAL EXAMINATION: VITAL SIGNS: Her temperature is 97.8 with a pulse of 81, respiratory rate 20, blood pressure 153/73, O2 sats 95% on room air. GENERAL: Well-developed, well-nourished female in no acute distress. EYES: Pupils are round and reactive. Sclerae nonicteric. HENT: Head is atraumatic. Mucous membranes moist. Face symmetric. NECK: Supple, without cervical lymphadenopathy, no supraclavicular lymphadenopathy. Neck is nontender without masses. CARDIOVASCULAR: Palpation of her left radial pulse reveals her pulse to be 2+ and by palpation, her pulse is regular in rate and rhythm. EXTREMITIES: She has no pedal edema. RESPIRATORY: Her respirations are nonlabored. She is on room air and her chest wall is nontender to palpation. ABDOMEN: Soft, nondistended. She does have tenderness in the epigastric and left upper quadrant area. No rebound or guarding. PSYCHIATRIC: Cooperative with appropriate mood and affect. NEUROLOGIC: No resting tremor. She can move all 4 extremities without difficulty. DERMATOLOGIC: Exposed portions of her skin are unremarkable. LABORATORY DATA: Reviewed. IMAGING: Reviewed. Dr. Murillo's notes were reviewed. ASSESSMENT: 1. Epigastric and left upper quadrant abdominal pain, possible biliary dyskinesia given her low gallbladder ejection fraction. 2. Tobacco use. 3. Diabetes mellitus. 4. Hyponatremia on admission, now with a normal sodium level. 5. Alcohol use. PLAN: The patient is being taken to the operating room today for laparoscopic cholecystectomy with intraoperative cholangiogram, possible open. The risks of surgery were described to the patient and her including bleeding, infection, need to convert to open, injury to the intra-abdominal structures, specifically hollow viscus, bile duct and vasculature, all of which can be serious and require additional repairs and additional surgery. Also discussed the risk of bile leak, need to convert to open, heart attack, stroke, DVT, PE, pneumonia and . We discussed that her risk of pneumonia is higher because of her smoking. Finally, we spent a fair amount of time discussing the reality that her symptoms are somewhat atypical for biliary etiology; however, she has had an otherwise negative workup other than the workup that has been positive for gallbladder dysfunction with a gallbladder ejection fraction of 20%. I did tell her that there is a fair possibility that she would have no improvement in her symptoms with cholecystectomy. She was given 2 choices, one proceed with cholecystectomy today in the hopes that it would alleviate her symptoms. The other option is to be discharged home and just see how she does and see if her pain were to improve. If it did not in the next couple of weeks, we could reconsider cholecystectomy. She and her discussed this and she would desire to proceed with cholecystectomy today. Dr. Murillo, thank you for allowing me to participate in this patient's care. KYM FARR MD DR: HELDER/luann JOB#: [id number] / [id number] MICHELLE Salmeron SCOTT MD
[2016-05-21 07:00] VITALS: BP 97/57
--- NOTE | 2016-05-21 07:21 | RAD ---
Intraoperative cholangiogram, 05/20/2016: History: Cholecystectomy A single spot films from surgery is present for review. Contrast has been injected into the cystic duct remnant. 0.26 minutes of fluoroscopy time is utilized. There is good flow of contrast into the duodenum at the ampulla. No filling defect is seen in the common duct to suggest a retained calculus. The incompletely opacified intrahepatic ducts are unremarkable. No contrast extravasation is seen. IMPRESSION: No significant abnormality is detected.
[2016-05-21] MEDS: PANTOPRAZOLE 40 MG TABLET. PO SCH ×2 (08:31→16:30)
[2016-05-21] MEDS: SUCRALFATE 1 GM TABLET. PO SCH ×4 (08:31→20:27)
[2016-05-21] MEDS: MULTIVIT INFUSN,ADULT 4,VIT K 10 ML, THIAMINE 100 MG, FOLIC ACID 1 MG in IV NORMAL SALI... IV SCH (08:32)
--- NOTE | 2016-05-21 09:35 | PDOC ---
SURGICAL PROGRESS NOTE Subjective tolerating diet pain managed urinating Vital Signs Vital Signs Date Time Temp Pulse Resp B/P Pulse Ox O2 Delivery O2 Flow Rate FiO2 05/21/16 07:00 98.2 73 14 97/57 95 Room Air 98.2 05/20/16 23:00 2.0 I&O Intake and Output 05/21/16 07:00 Intake Total 555 ml Output Total 1000 ml Balance -445 ml Intake Oral 555 ml Output Urine Total 1000 ml # Voids 3 General: Alert, Oriented X3, Cooperative, No acute distress Abdomen: Soft (lap sites c/d/i, no erythema) Labs Laboratory Tests Test 05/19/16 11:48 05/19/16 21:33 05/20/16 05:08 05/20/16 07:38 Glucose (Fingerstick) 183mg/dL (70-99) 195mg/dL (70-99) 164mg/dL (70-99) White Blood Count 7.4x10^3/uL (4.0-11.0) Red Blood Count 3.64x10^6/uL (3.50-5.40) Hemoglobin 11.7g/dL (12.0-15.5) Hematocrit 34.8% (36.0-47.0) Mean Corpuscular Volume 96fL (79-100) Mean Corpuscular Hemoglobin 32pg (25-35) Mean Corpuscular Hemoglobin Concent 34g/dL (31-37) Red Cell Distribution Width 13.7% (11.5-14.5) Platelet Count 209x10^3/uL (140-400) Neutrophils (%) (Auto) 60% (31-73) Lymphocytes (%) (Auto) 24% (24-48) Monocytes (%) (Auto) 11% (0-9) Eosinophils (%) (Auto) 3% (0-3) Basophils (%) (Auto) 2% (0-3) Neutrophils # (Auto) 4.4x10^3uL (1.8-7.7) Lymphocytes # (Auto) 1.8x10^3/uL (1.0-4.8) Monocytes # (Auto) 0.8x10^3/uL (0.0-1.1) Eosinophils # (Auto) 0.2x10^3/uL (0.0-0.7) Basophils # (Auto) 0.1x10^3/uL (0.0-0.2) Sodium Level 141mmol/L (136-145) Potassium Level 4.1mmol/L (3.5-5.1) Chloride Level 104mmol/L (98-107) Carbon Dioxide Level 27mmol/L (21-32) Anion Gap 10 (6-14) Blood Urea Nitrogen 10mg/dL (7-20) Creatinine 0.5mg/dL (0.6-1.0) Estimated GFR (Cockcroft-Gault) 131.7 Glucose Level 157mg/dL (70-99) Calcium Level 8.7mg/dL (8.5-10.1) Test 05/20/16 12:43 05/20/16 18:50 05/20/16 20:45 05/21/16 04:10 Glucose (Fingerstick) 190mg/dL (70-99) 192mg/dL (70-99) 218mg/dL (70-99) White Blood Count 7.8x10^3/uL (4.0-11.0) Red Blood Count 3.67x10^6/uL (3.50-5.40) Hemoglobin 11.7g/dL (12.0-15.5) Hematocrit 35.9% (36.0-47.0) Mean Corpuscular Volume 98fL (79-100) Mean Corpuscular Hemoglobin 32pg (25-35) Mean Corpuscular Hemoglobin Concent 33g/dL (31-37) Red Cell Distribution Width 13.9% (11.5-14.5) Platelet Count 229x10^3/uL (140-400) Neutrophils (%) (Auto) 74% (31-73) Lymphocytes (%) (Auto) 20% (24-48) Monocytes (%) (Auto) 7% (0-9) Eosinophils (%) (Auto) 0% (0-3) Basophils (%) (Auto) 0% (0-3) Neutrophils # (Auto) 5.7x10^3uL (1.8-7.7) Lymphocytes # (Auto) 1.5x10^3/uL (1.0-4.8) Monocytes # (Auto) 0.5x10^3/uL (0.0-1.1) Eosinophils # (Auto) 0.0x10^3/uL (0.0-0.7) Basophils # (Auto) 0.0x10^3/uL (0.0-0.2) Sodium Level 140mmol/L (136-145) Potassium Level 4.5mmol/L (3.5-5.1) Chloride Level 103mmol/L (98-107) Carbon Dioxide Level 27mmol/L (21-32) Anion Gap 10 (6-14) Blood Urea Nitrogen 8mg/dL (7-20) Creatinine 0.6mg/dL (0.6-1.0) Estimated GFR (Cockcroft-Gault) 106.7 Glucose Level 175mg/dL (70-99) Calcium Level 8.4mg/dL (8.5-10.1) Test 05/21/16 07:45 Glucose (Fingerstick) 136mg/dL (70-99) Laboratory Tests Test 05/20/16 12:43 05/20/16 18:50 05/20/16 20:45 05/21/16 04:10 Glucose (Fingerstick) 190mg/dL (70-99) 192mg/dL (70-99) 218mg/dL (70-99) White Blood Count 7.8x10^3/uL (4.0-11.0) Red Blood Count 3.67x10^6/uL (3.50-5.40) Hemoglobin 11.7g/dL (12.0-15.5) Hematocrit 35.9% (36.0-47.0) Mean Corpuscular Volume 98fL (79-100) Mean Corpuscular Hemoglobin 32pg (25-35) Mean Corpuscular Hemoglobin Concent 33g/dL (31-37) Red Cell Distribution Width 13.9% (11.5-14.5) Platelet Count 229x10^3/uL (140-400) Neutrophils (%) (Auto) 74% (31-73) Lymphocytes (%) (Auto) 20% (24-48) Monocytes (%) (Auto) 7% (0-9) Eosinophils (%) (Auto) 0% (0-3) Basophils (%) (Auto) 0% (0-3) Neutrophils # (Auto) 5.7x10^3uL (1.8-7.7) Lymphocytes # (Auto) 1.5x10^3/uL (1.0-4.8) Monocytes # (Auto) 0.5x10^3/uL (0.0-1.1) Eosinophils # (Auto) 0.0x10^3/uL (0.0-0.7) Basophils # (Auto) 0.0x10^3/uL (0.0-0.2) Sodium Level 140mmol/L (136-145) Potassium Level 4.5mmol/L (3.5-5.1) Chloride Level 103mmol/L (98-107) Carbon Dioxide Level 27mmol/L (21-32) Anion Gap 10 (6-14) Blood Urea Nitrogen 8mg/dL (7-20) Creatinine 0.6mg/dL (0.6-1.0) Estimated GFR (Cockcroft-Gault) 106.7 Glucose Level 175mg/dL (70-99) Calcium Level 8.4mg/dL (8.5-10.1) Test 05/21/16 07:45 Glucose (Fingerstick) 136mg/dL (70-99) Problem List Problems Medical Problems: (1) Abdominal pain Status: Acute Assessment/Plan s/p lap myrna ok to ri home FU [address] Kapoor Problems: FLAQUITO GACRIA APRN May 21, 2016 09:35
[2016-05-21 10:45] VITALS: BP 94/58
[2016-05-21] MEDS ORDERED: INFLUENZA VAX SCREEN BY RX. MC PRN (12:15)
[2016-05-21] MEDS ORDERED: FLU VACC QUAD 2016-17 (36MOS+)/PF 0.5 ML SYRINGE. VAX IM ONE (14:00)
[2016-05-21 15:00] VITALS: BP 111/58
--- NOTE | 2016-05-21 18:28 | PDOC ---
G I PROGRESS NOTE Reason for Follow-up Abd pain Subjective Incisinoal pain S/P myrna present Physical Exam Lungs clear CV S1 S2 ABD +BS, soft, incisions intact Review of Relevant I have reviewed the following items mike (where applicable) has been applied. Labs Laboratory Tests Test 05/19/16 21:33 05/20/16 05:08 05/20/16 07:38 05/20/16 12:43 Glucose (Fingerstick) 195mg/dL (70-99) 164mg/dL (70-99) 190mg/dL (70-99) White Blood Count 7.4x10^3/uL (4.0-11.0) Red Blood Count 3.64x10^6/uL (3.50-5.40) Hemoglobin 11.7g/dL (12.0-15.5) Hematocrit 34.8% (36.0-47.0) Mean Corpuscular Volume 96fL (79-100) Mean Corpuscular Hemoglobin 32pg (25-35) Mean Corpuscular Hemoglobin Concent 34g/dL (31-37) Red Cell Distribution Width 13.7% (11.5-14.5) Platelet Count 209x10^3/uL (140-400) Neutrophils (%) (Auto) 60% (31-73) Lymphocytes (%) (Auto) 24% (24-48) Monocytes (%) (Auto) 11% (0-9) Eosinophils (%) (Auto) 3% (0-3) Basophils (%) (Auto) 2% (0-3) Neutrophils # (Auto) 4.4x10^3uL (1.8-7.7) Lymphocytes # (Auto) 1.8x10^3/uL (1.0-4.8) Monocytes # (Auto) 0.8x10^3/uL (0.0-1.1) Eosinophils # (Auto) 0.2x10^3/uL (0.0-0.7) Basophils # (Auto) 0.1x10^3/uL (0.0-0.2) Sodium Level 141mmol/L (136-145) Potassium Level 4.1mmol/L (3.5-5.1) Chloride Level 104mmol/L (98-107) Carbon Dioxide Level 27mmol/L (21-32) Anion Gap 10 (6-14) Blood Urea Nitrogen 10mg/dL (7-20) Creatinine 0.5mg/dL (0.6-1.0) Estimated GFR (Cockcroft-Gault) 131.7 Glucose Level 157mg/dL (70-99) Calcium Level 8.7mg/dL (8.5-10.1) Test 05/20/16 18:50 05/20/16 20:45 05/21/16 04:10 05/21/16 07:45 Glucose (Fingerstick) 192mg/dL (70-99) 218mg/dL (70-99) 136mg/dL (70-99) White Blood Count 7.8x10^3/uL (4.0-11.0) Red Blood Count 3.67x10^6/uL (3.50-5.40) Hemoglobin 11.7g/dL (12.0-15.5) Hematocrit 35.9% (36.0-47.0) Mean Corpuscular Volume 98fL (79-100) Mean Corpuscular Hemoglobin 32pg (25-35) Mean Corpuscular Hemoglobin Concent 33g/dL (31-37) Red Cell Distribution Width 13.9% (11.5-14.5) Platelet Count 229x10^3/uL (140-400) Neutrophils (%) (Auto) 74% (31-73) Lymphocytes (%) (Auto) 20% (24-48) Monocytes (%) (Auto) 7% (0-9) Eosinophils (%) (Auto) 0% (0-3) Basophils (%) (Auto) 0% (0-3) Neutrophils # (Auto) 5.7x10^3uL (1.8-7.7) Lymphocytes # (Auto) 1.5x10^3/uL (1.0-4.8) Monocytes # (Auto) 0.5x10^3/uL (0.0-1.1) Eosinophils # (Auto) 0.0x10^3/uL (0.0-0.7) Basophils # (Auto) 0.0x10^3/uL (0.0-0.2) Sodium Level 140mmol/L (136-145) Potassium Level 4.5mmol/L (3.5-5.1) Chloride Level 103mmol/L (98-107) Carbon Dioxide Level 27mmol/L (21-32) Anion Gap 10 (6-14) Blood Urea Nitrogen 8mg/dL (7-20) Creatinine 0.6mg/dL (0.6-1.0) Estimated GFR (Cockcroft-Gault) 106.7 Glucose Level 175mg/dL (70-99) Calcium Level 8.4mg/dL (8.5-10.1) Test 05/21/16 11:19 05/21/16 16:04 Glucose (Fingerstick) 143mg/dL (70-99) 123mg/dL (70-99) Laboratory Tests Test 05/20/16 18:50 05/20/16 20:45 05/21/16 04:10 05/21/16 07:45 Glucose (Fingerstick) 192mg/dL (70-99) 218mg/dL (70-99) 136mg/dL (70-99) White Blood Count 7.8x10^3/uL (4.0-11.0) Red Blood Count 3.67x10^6/uL (3.50-5.40) Hemoglobin 11.7g/dL (12.0-15.5) Hematocrit 35.9% (36.0-47.0) Mean Corpuscular Volume 98fL (79-100) Mean Corpuscular Hemoglobin 32pg (25-35) Mean Corpuscular Hemoglobin Concent 33g/dL (31-37) Red Cell Distribution Width 13.9% (11.5-14.5) Platelet Count 229x10^3/uL (140-400) Neutrophils (%) (Auto) 74% (31-73) Lymphocytes (%) (Auto) 20% (24-48) Monocytes (%) (Auto) 7% (0-9) Eosinophils (%) (Auto) 0% (0-3) Basophils (%) (Auto) 0% (0-3) Neutrophils # (Auto) 5.7x10^3uL (1.8-7.7) Lymphocytes # (Auto) 1.5x10^3/uL (1.0-4.8) Monocytes # (Auto) 0.5x10^3/uL (0.0-1.1) Eosinophils # (Auto) 0.0x10^3/uL (0.0-0.7) Basophils # (Auto) 0.0x10^3/uL (0.0-0.2) Sodium Level 140mmol/L (136-145) Potassium Level 4.5mmol/L (3.5-5.1) Chloride Level 103mmol/L (98-107) Carbon Dioxide Level 27mmol/L (21-32) Anion Gap 10 (6-14) Blood Urea Nitrogen 8mg/dL (7-20) Creatinine 0.6mg/dL (0.6-1.0) Estimated GFR (Cockcroft-Gault) 106.7 Glucose Level 175mg/dL (70-99) Calcium Level 8.4mg/dL (8.5-10.1) Test 05/21/16 11:19 05/21/16 16:04 Glucose (Fingerstick) 143mg/dL (70-99) 123mg/dL (70-99) Microbiology 05/18/16 Urine Culture - Final, Complete 05/18/16 Urine Culture Result 1 (JARVIS) - Final, Complete 05/18/16 Antimicrobic Susceptibility - Final, Complete Medications Current Medications Sodium Chloride (Iv Sodium Chloride 0.9% 1000ml Bag) 1,000 ml @ 1,000 mls/hr 1X ONCE IV Last administered on 05/18/16 11:46; Start 05/18/16 at 11:45; Stop 05/18/16 at 12:44; Status DC Metoclopramide HCl (Reglan) 10 mg 1X ONCE IV Last administered on 05/18/16 11 :48; Start 05/18/16 at 11:45; Stop 05/18/16 at 11:46; Status DC Fentanyl Citrate (Fentanyl 2ml Vial) 50 mcg 1X ONCE IV Last administered on 11:47; Start 05/18/16 at 11:45; Stop 05/18/16 at 11:46; Status DC Iohexol (Omnipaque 300 Mg/ml) 75 ml 1X ONCE IV Last administered on 05/18/16 12:34; Start 05/18/16 at 12:15; Stop 05/18/16 at 12:16; Status DC Info (Do NOT chart on this entry -- for MONITORING) 1 each PRN DAILY PRN MC SEE COMMENTS; Start 05/18/16 at 12:30; Stop 05/20/16 at 12:29; Status DC Fentanyl Citrate (Fentanyl 2ml Vial) 50 mcg PRN Q15MIN PRN IV PAIN GREATER THAN 3/10; Start 05/18/16 at 12:30; Stop 05/19/16 at 12:29; Status DC Dicyclomine HCl (Bentyl) 10 mg 1X ONCE PO Last administered on 05/18/16 14:11 ; Start 05/18/16 at 14:00; Stop 05/18/16 at 14:01; Status DC Ondansetron HCl (Zofran) 4 mg PRN Q8HRS PRN IV NAUSEA/VOMITING; Start 05/18/16 at 17:00; Stop 05/19/16 at 16:59; Status DC Acetaminophen (Tylenol) 650 mg PRN Q4HRS PRN PO FEVER; Start 05/18/16 at 17:00 ; Stop 05/19/16 at 16:59; Status DC Ketorolac Tromethamine (Toradol) 10 mg PRN QID PRN IV PAIN Last administered on 05/19/16 20:17; Start 05/18/16 at 17:00; Stop 05/20/16 at 18:31; Status DC Sucralfate (Carafate) 1 gm QIDACHS PO Last administered on 05/21/16 16:30; Start 05/18/16 at 21:30 Pantoprazole Sodium 40 mg 40 mg BIDAC PO Last administered on 05/21/16 16:30; Start 05/19/16 at 07:30 Multivitamins/ Thiamine HCl/ Folic Acid/Sodium Chloride (Infuvite Adult/ Iv Sodium Chloride 0.9% 1000ml Bag) 1,011.2 ml @ 100 mls/ hr DAILY IV Last administered on 05/21/16 08:32; Start 05/19/16 at 09:00; Stop 05/24/16 at 08:59 Lorazepam 2 mg 2 mg Q6H PO Last administered on 05/19/16 09:48; Start at 21:30; Stop 05/20/16 at 03:31; Status DC Ceftriaxone Sodium 2 gm/ Sodium Chloride 100 ml @ 200 mls/hr Q24H IV Last administered on 05/20/16 21:51; Start 05/18/16 at 21:30 Lactated Ringer's 1,000 ml @ 75 mls/hr 1X ONCE IV Last administered on 16:42; Start 05/19/16 at 17:00; Stop 05/20/16 at 06:19; Status DC Propofol 20 ml @ As Directed STK-MED ONCE IV ; Start 05/19/16 at 17:59; Stop at 18:00; Status DC Sincalide/Sodium Chloride (Kinevac/Iv Sodium Chloride 0.9% 50ml) 30 ml @ 120 mls/hr 1X ONCE IV Last administered on 05/20/16 11:31; Start 05/20/16 at 11: 00; Stop 05/20/16 at 11:14; Status DC Sevoflurane (Ultane) 60 ml STK-MED ONCE IH ; Start 05/20/16 at 13:38; Stop 05/20 at 13:39; Status DC Midazolam HCl (Versed) 2 mg STK-MED ONCE .ROUTE ; Start 05/20/16 at 13:39; Stop 05/20/16 at 13:40; Status DC Fentanyl Citrate (Fentanyl 2ml Vial) 100 mcg STK-MED ONCE .ROUTE ; Start at 13:39; Stop 05/20/16 at 13:40; Status DC Rocuronium [place] 50 mg 50 mg STK-MED ONCE .ROUTE ; Start 05/20/16 at 13:39; Stop 05/20/16 at 13:40; Status DC Propofol (Diprivan) 20 ml @ As Directed STK-MED ONCE IV ; Start 05/20/16 at 13: 39; Stop 05/20/16 at 13:40; Status DC Dexamethasone Sodium Phosphate (Decadron) 20 mg STK-MED ONCE .ROUTE ; Start at 13:39; Stop 05/20/16 at 13:40; Status DC Dexamethasone Sodium Phosphate (Decadron) 20 mg STK-MED ONCE .ROUTE ; Start at 13:39; Stop 05/20/16 at 13:40; Status DC Ondansetron HCl (Zofran) 4 mg STK-MED ONCE .ROUTE ; Start 05/20/16 at 13:40; Stop 05/20/16 at 13:41; Status DC Lidocaine HCl 100 mg STK-MED ONCE .ROUTE ; Start 05/20/16 at 13:40; Stop at 13:41; Status DC Dexamethasone Sodium Phosphate (Decadron) 20 mg STK-MED ONCE .ROUTE ; Start at 13:40; Stop 05/20/16 at 13:41; Status DC Rocuronium [place] (Zemuron) 100 mg STK-MED ONCE .ROUTE ; Start 05/20/16 at 14: 02; Stop 05/20/16 at 14:03; Status DC Fentanyl Citrate (Fentanyl 5ml Vial) 250 mcg STK-MED ONCE .ROUTE ; Start at 14:04; Stop 05/20/16 at 14:05; Status DC Ondansetron HCl (Zofran) 4 mg PRN Q6HRS PRN IV Nausea; Start 05/20/16 at 14:45 ; Stop 05/20/16 at 20:00; Status DC Fentanyl Citrate (Fentanyl 2ml Vial) 25 mcg PRN Q5MIN PRN IV MILD PAIN; Start 05/20/16 at 14:45; Stop 05/20/16 at 20:00; Status DC Fentanyl Citrate (Fentanyl 2ml Vial) 50 mcg PRN Q5MIN PRN IV MODERATE PAIN Last administered on 05/20/16t 19:27; Start 05/20/16 at 14:45; Stop 05/20/16 at 20:00; Status DC Morphine Sulfate 1 mg 1 mg PRN Q10MIN PRN IV SEVERE PAIN; Start 05/20/16 at 14: 45; Stop 05/20/16 at 20:00; Status DC Lactated Ringer's (Iv Lactated Ringers) 1,000 ml @ 30 mls/hr Q24H IV Last administered on 05/20/16t 16:25; Start 05/20/16 at 14:42; Stop 05/21/16 at 02:41 ; Status DC Lidocaine HCl 2 ml 1X PRN PRN ID IV START; Start 05/20/16 at 14:45; Stop at 20:00; Status DC Hydromorphone HCl (Dilaudid) 0.5 mg PRN Q10MIN PRN IV SEV PAIN,Second choice; Start 05/20/16 at 14:45; Stop 05/20/16 at 20:00; Status DC Prochlorperazine Edisylate 5 mg 5 mg PACU PRN PRN IV NAUSEA; Start 05/20/16 at 14:45; Stop 05/20/16 at 20:00; Status DC Albumin Human (Plasmanate) 0 ml @ As Directed STK-MED ONCE IV ; Start 05/20/16 at 14:43; Stop 05/20/16 at 14:44; Status DC Cellulose 1 each STK-MED ONCE .ROUTE ; Start 05/20/16 at 16:17; Stop 05/20/16 at 16:18; Status DC Bupivacaine HCl/ Epinephrine Bitart (Sensorcain-Mpf Epi 0.5%-[id number]) 30 ml STK -MED ONCE .ROUTE Last administered on 05/20/16 17:27; Start 05/20/16 at 16:17 ; Stop 05/20/16 at 16:18; Status DC Iohexol (Omnipaque 300 Mg/ml) 50 ml STK-MED ONCE .ROUTE Last administered on 17:27; Start 05/20/16 at 16:17; Stop 05/20/16 at 16:18; Status DC Dexamethasone Sodium Phosphate (Decadron) 20 mg STK-MED ONCE .ROUTE ; Start at 17:20; Stop 05/20/16 at 17:21; Status DC Neostigmine Methylsulfate 5 mg STK-MED ONCE .ROUTE ; Start 05/20/16 at 18:17; Stop 05/20/16 at 18:18; Status DC Sevoflurane (Ultane) 60 ml STK-MED ONCE IH ; Start 05/20/16 at 18:17; Stop 05/20 at 18:18; Status DC Glycopyrrolate (Robinul) 1 mg STK-MED ONCE .ROUTE ; Start 05/20/16 at 18:17; Stop 05/20/16 at 18:18; Status DC Oxycodone HCl (Roxicodone) 10 mg PRN Q6HRS PRN PO PAIN Last administered on t 18:16; Start 05/20/16 at 18:30 Info (Do NOT chart on this placeholder) 1 each PRN 1X PRN MC SEE COMMENTS; Start 05/21/16 at 12:15; Status UNV Influenza Virus Vaccine Quadrival (Fluarix Quad [id number] Syringe) 0.5 ml ONCE ONCE VAX IM ; Start 05/21/16 at 14:00; Stop 05/21/16 at 14:01; Status DC Vitals/I & O Vital Sign - Last 24 Hours 05/20/16 05/20/16 05/20/16 05/20/16 18:44 18:51 18:59 19:05 Temp 97.2 97.2 Pulse 91 89 Resp 16 16 18 B/P 160/79 164/78 Pulse Ox 100 98 O2 Delivery Simple Mask Mask Nasal Cannula O2 Flow Rate 10 10 2 05/20/16 05/20/16 05/20/16 05/20/16 19:14 19:27 19:29 19:29 Temp 97.2 97.2 Pulse 88 85 Resp 16 18 16 B/P 173/85 168/84 Pulse Ox 98 94 92 O2 Delivery Nasal Cannula Nasal Cannula Nasal Cannula Nasal Cannula O2 Flow Rate 2 2.0 2 2 05/20/16 05/20/16 05/20/16 05/20/16 19:50 20:00 20:15 20:30 Temp 98.6 98.9 98.9 98.6 98.9 98.9 Pulse 81 79 80 Resp 20 20 20 B/P 142/82 152/87 155/87 Pulse Ox 96 96 94 O2 Delivery Room Air Nasal Cannula Nasal Cannula Nasal Cannula O2 Flow Rate 2.0 2.0 2.0 05/20/16 05/20/16 05/20/16 05/20/16 20:45 20:49 21:00 21:30 Temp 98.9 98.1 98.9 98.9 98.1 98.9 Pulse 80 74 82 Resp 20 16 20 20 B/P 156/87 141/74 150/73 Pulse Ox 96 96 98 98 O2 Delivery Nasal Cannula Nasal Cannula Nasal Cannula Nasal Cannula O2 Flow Rate 2.0 2.0 2.0 2.0 05/20/16 05/20/16 05/21/16 05/21/16 22:00 23:00 02:53 03:00 Temp 98.0 98.5 98.0 98.5 Pulse 72 75 Resp 20 16 18 B/P 150/73 128/67 Pulse Ox 98 98 95 O2 Delivery Nasal Cannula Room Air Room Air O2 Flow Rate 2.0 2.0 05/21/16 05/21/16 05/21/16 05/21/16 04:00 07:00 08:00 10:45 Temp 98.2 98.3 98.2 98.3 Pulse 73 70 Resp 16 14 14 B/P 97/57 94/58 Pulse Ox 95 93 O2 Delivery Room Air Room Air Room Air 05/21/16 05/21/16 05/21/16 05/21/16 12:07 13:07 15:00 18:16 Temp 98.2 98.2 Pulse 83 Resp 15 B/P 111/58 Pulse Ox 93 93 O2 Delivery Room Air Room Air Room Air Room Air O2 Flow Rate 88.0 Intake and Output 05/20/16 05/20/16 05/21/16 15:00 23:00 07:00 Intake Total 540 ml 15 ml Output Total 1000 ml 0 ml Balance 540 ml -985 ml 0 ml Problem List Problems Medical Problems: (1) Abdominal pain Status: Acute Assessment Abd pain-S/p myrna, await liver biopsy, advance diet and activity as tolerated, office follow up in several weeks, disposition plans per primary REGLA BURNS MD May 21, 2016 18:28
[2016-05-21 20:30] VITALS: BP 125/68
--- NOTE | 2016-05-21 20:59 | OP ---
DATE OF SURGERY: 05/20/2016 PREOPERATIVE DIAGNOSIS: Biliary dyskinesia. POSTOPERATIVE DIAGNOSES: 1. Biliary dyskinesia. 2. Cirrhosis of the liver. PROCEDURES: 1. Laparoscopic cholecystectomy with intraoperative cholangiogram. 2. Laparoscopic liver biopsy. SURGEON: Kym Farr M.D. ANESTHESIA: General. ESTIMATED BLOOD LOSS: 75 mL. IV FLUIDS: 500 mL. INDICATIONS: The patient is a 50-year-old female who presented with left upper quadrant and epigastric pain. She had an EGD that was normal. She had a gallbladder ultrasound that was normal and a pipida scan that showed decreased gallbladder ejection fraction. Based on otherwise unremarkable findings and the decreased gallbladder ejection fraction cholecystectomy was recommended. FINDINGS: She has cirrhosis of the liver, this was not known preoperatively. Liver biopsy was performed. She has a history of heavy alcohol use. Intraoperative cholangiogram is normal. DESCRIPTION OF PROCEDURE: After informed consent was obtained, the patient was taken to the operating room and placed in supine position. After adequate induction of general anesthesia, she was prepped and draped in usual sterile fashion. An umbilical skin incision was made with scalpel, subcutaneous tissues with a hemostat. [facility] was used to grab the fascia and lift it anteriorly. Veress was used to gain access to the peritoneal cavity. Low opening pressures confirmed intraperitoneal placement of Veress. Pneumoperitoneum to 15 mmHg was established followed by placement of 5 mm port. A 5 mm 30 degree lens was inserted, which revealed good port placement. No evidence of entry trauma. She was placed head up, rotated towards her left. Three additional ports were placed under direct vision after the sites were injected with local anesthetic. Skin incisions were made and an epigastric 12 mm port and two 5 mm right lateral ports were placed. The liver was nodular and enlarged and very firm and difficult to manipulate. She had cirrhosis. The gallbladder felt was intrahepatic and buried by this markedly abnormal liver. The fundus of the gallbladder was retracted over the liver as much as could be done and slightly towards the right. The infundibulum was retracted towards the right and towards her toes to open the triangle of Calot. The dissection was difficult because of the location of the gallbladder within the liver. The leading peritoneal edge was scored with cautery, medially and laterally and carried back towards the liver with cautery. [place] dissector was used to dissect the triangle of [place]ot. At the completion of dissection, 2 structures were seen leading directly to the gallbladder, one was a cystic artery, one was a cystic duct seen very small and short. Two clips were placed on cystic artery proximally, one distally. A clip was placed on cystic duct adjacent to the gallbladder. Ductotomy was made with scissors. Intraoperative cholangiogram showed free flow of contrast. The cystic duct, common bile duct, common hepatic, left hepatic duct, left and right hepatic duct, intrahepatic radicles, free flow of contrast into the duodenum with no filling defects noted. The cholangiogram was interpreted as normal and was completed. The catheter was removed and 2 clips were placed on cystic duct, distal ductotomy. Ductotomy completed with scissors. Given the short nature of the cystic duct I did further secure it with the PDS Endoloop placed just beyond the clip, but on an area of a cystic duct that had been dissected previously. The cystic artery was transected sharply. Gallbladder was removed from the bed of the liver with cautery and placed in a laparoscopic bag, was brought through the epigastric incision. The right upper quadrant was irrigated. Irrigant returned clear. There was no bleeding or bile leakage noted. A liver biopsy was performed with the two-cut core needle. Three passes were made and the hemostasis was obtained with cautery. One final look at the right upper quadrant revealed it to be hemostatic. Pneumoperitoneum was desufflated. Skin incisions were closed with 4-0 Monocryl in subcuticular fashion. Of note the fascia at the epigastric incision was closed with an 0 Vicryl using a suture passer under a direct laparoscopic vision. After closing the skin incisions with 4-0 Monocryl in subcuticular fashion sterile dressings were placed. She tolerated the procedure well. There were no apparent complications. She was then transferred in stable condition to the recovery room. KYM FARR MD DR: HELDER/luann JOB#: [id number] / [id number] MICHELLE Salmeron SCOTT MD
[2016-05-21] MEDS: CEFTRIAXONE SODIUM 2 GM in IV NORMAL SALINE 100ML 100 ML IV SCH (21:52)
[2016-05-21 23:30] VITALS: BP 110/61
[2016-05-22] MEDS: OXYCODONE IR 5 MG TABLET. PO PRN ×2 (01:23→08:30)
[2016-05-22 03:30] VITALS: BP 115/52
[2016-05-22 05:27] LABS: BASO # 0.1 x10^3/uL (0.0-0.2); BASO % 1 % (0-3); EOS % 2 % (0-3); HEMOGLOBIN 11.6 g/dL (12.0-15.5); LYMPH # 2.8 x10^3/uL (1.0-4.8); LYMPH % 24 % (24-48); MEAN CORPUSCULAR HEMOGLOBIN 32 pg (25-35); MEAN CORPUSCULAR HGB CONC 33 g/dL (31-37); MEAN CORPUSCULAR VOLUME 96 fL (79-100); MONO % 12 % (0-9); NEUT % 62 % (31-73); PLATELET COUNT 242 x10^3/uL (140-400); RED BLOOD COUNT 3.65 x10^6/uL (3.50-5.40); RED CELL DISTRIBUTION WIDTH 13.8 % (11.5-14.5); WHITE BLOOD COUNT 11.6 x10^3/uL (4.0-11.0)
[2016-05-22 05:55] LABS: CALCIUM 8.2 mg/dL (8.5-10.1); CREATININE 0.6 mg/dL (0.6-1.0); GFR 106.7; POTASSIUM 3.9 mmol/L (3.5-5.1)
[2016-05-22 07:00] VITALS: BP 138/61
[2016-05-22] MEDS: PANTOPRAZOLE 40 MG TABLET. PO SCH (08:29)
[2016-05-22] MEDS: SUCRALFATE 1 GM TABLET. PO SCH ×2 (08:29→11:30)
--- NOTE | 2016-05-22 08:59 | PDOC ---
PROGRESS NOTES Chief Complaint Chief Complaint Abdominal pain History of Present Illness History of Present Illness No acute events overnight. Patient is POD #2 lap myrna. She has been cleared by GI and surgery for discharge. Patient is agreeable and feels she is ready to go home. Vitals Vitals Vital Signs Date Time Temp Pulse Resp B/P Pulse Ox O2 Delivery O2 Flow Rate FiO2 05/22/16 08:30 Room Air 05/22/16 07:00 98.8 90 14 138/61 92 98.8 05/21/16 15:00 88.0 Physical Exam General: Alert, Cooperative, No acute distress Heart: Regular rate, No murmurs Lungs: Clear, Other (no wheezing) Abdomen: Soft (lap sites c/d/i, no erythema) Extremities: No cyanosis, No edema Skin: No rashes, No significant lesion Labs LABS Laboratory Tests Test 05/21/16 11:19 05/21/16 16:04 05/21/16 20:53 05/22/16 04:55 Glucose (Fingerstick) 143mg/dL (70-99) 123mg/dL (70-99) 162mg/dL (70-99) White Blood Count 11.6x10^3/uL (4.0-11.0) Red Blood Count 3.65x10^6/uL (3.50-5.40) Hemoglobin 11.6g/dL (12.0-15.5) Hematocrit 35.0% (36.0-47.0) Mean Corpuscular Volume 96fL (79-100) Mean Corpuscular Hemoglobin 32pg (25-35) Mean Corpuscular Hemoglobin Concent 33g/dL (31-37) Red Cell Distribution Width 13.8% (11.5-14.5) Platelet Count 242x10^3/uL (140-400) Neutrophils (%) (Auto) 62% (31-73) Lymphocytes (%) (Auto) 24% (24-48) Monocytes (%) (Auto) 12% (0-9) Eosinophils (%) (Auto) 2% (0-3) Basophils (%) (Auto) 1% (0-3) Neutrophils # (Auto) 7.2x10^3uL (1.8-7.7) Lymphocytes # (Auto) 2.8x10^3/uL (1.0-4.8) Monocytes # (Auto) 1.3x10^3/uL (0.0-1.1) Eosinophils # (Auto) 0.2x10^3/uL (0.0-0.7) Basophils # (Auto) 0.1x10^3/uL (0.0-0.2) Sodium Level 139mmol/L (136-145) Potassium Level 3.9mmol/L (3.5-5.1) Chloride Level 103mmol/L (98-107) Carbon Dioxide Level 25mmol/L (21-32) Anion Gap 11 (6-14) Blood Urea Nitrogen 9mg/dL (7-20) Creatinine 0.6mg/dL (0.6-1.0) Estimated GFR (Cockcroft-Gault) 106.7 Glucose Level 159mg/dL (70-99) Calcium Level 8.2mg/dL (8.5-10.1) Test 05/22/16 07:45 Glucose (Fingerstick) 143mg/dL (70-99) Review of Systems Review of Systems Denies fever and chills. Denies chest pain and shortness of breath Assessment and Plan Assessmemt and Plan Problems Medical Problems: (1) Abdominal pain Status: Acute ASSESSMENT: POD #2 s/p lap myrna Abdominal pain, no acute intra-abdominal process, likely alcoholic gastritis Fatty infiltration of liver Splenomegaly Diabetes Mellitus CAD HTN Alcohol abuse PLAN: GI and surgery are following, their recommendations are appreciated Continue antibiotics, preliminary urine culture growing E. coli Continue to monitor for alcohol withdrawal, Ativan is available if needed Trending daily labs PT/OT eval and treat Encourage alcohol cessation Probable discharge home today. Problems: Comment Review of Relevant I have reviewed the following items mike (where applicable) has been applied. Labs Laboratory Tests Test 05/20/16 12:43 05/20/16 18:50 05/20/16 20:45 05/21/16 04:10 Glucose (Fingerstick) 190mg/dL (70-99) 192mg/dL (70-99) 218mg/dL (70-99) White Blood Count 7.8x10^3/uL (4.0-11.0) Red Blood Count 3.67x10^6/uL (3.50-5.40) Hemoglobin 11.7g/dL (12.0-15.5) Hematocrit 35.9% (36.0-47.0) Mean Corpuscular Volume 98fL (79-100) Mean Corpuscular Hemoglobin 32pg (25-35) Mean Corpuscular Hemoglobin Concent 33g/dL (31-37) Red Cell Distribution Width 13.9% (11.5-14.5) Platelet Count 229x10^3/uL (140-400) Neutrophils (%) (Auto) 74% (31-73) Lymphocytes (%) (Auto) 20% (24-48) Monocytes (%) (Auto) 7% (0-9) Eosinophils (%) (Auto) 0% (0-3) Basophils (%) (Auto) 0% (0-3) Neutrophils # (Auto) 5.7x10^3uL (1.8-7.7) Lymphocytes # (Auto) 1.5x10^3/uL (1.0-4.8) Monocytes # (Auto) 0.5x10^3/uL (0.0-1.1) Eosinophils # (Auto) 0.0x10^3/uL (0.0-0.7) Basophils # (Auto) 0.0x10^3/uL (0.0-0.2) Sodium Level 140mmol/L (136-145) Potassium Level 4.5mmol/L (3.5-5.1) Chloride Level 103mmol/L (98-107) Carbon Dioxide Level 27mmol/L (21-32) Anion Gap 10 (6-14) Blood Urea Nitrogen 8mg/dL (7-20) Creatinine 0.6mg/dL (0.6-1.0) Estimated GFR (Cockcroft-Gault) 106.7 Glucose Level 175mg/dL (70-99) Calcium Level 8.4mg/dL (8.5-10.1) Test 05/21/16 07:45 05/21/16 11:19 05/21/16 16:04 05/21/16 20:53 Glucose (Fingerstick) 136mg/dL (70-99) 143mg/dL (70-99) 123mg/dL (70-99) 162mg/dL (70-99) Test 05/22/16 04:55 05/22/16 07:45 White Blood Count 11.6x10^3/uL (4.0-11.0) Red Blood Count 3.65x10^6/uL (3.50-5.40) Hemoglobin 11.6g/dL (12.0-15.5) Hematocrit 35.0% (36.0-47.0) Mean Corpuscular Volume 96fL (79-100) Mean Corpuscular Hemoglobin 32pg (25-35) Mean Corpuscular Hemoglobin Concent 33g/dL (31-37) Red Cell Distribution Width 13.8% (11.5-14.5) Platelet Count 242x10^3/uL (140-400) Neutrophils (%) (Auto) 62% (31-73) Lymphocytes (%) (Auto) 24% (24-48) Monocytes (%) (Auto) 12% (0-9) Eosinophils (%) (Auto) 2% (0-3) Basophils (%) (Auto) 1% (0-3) Neutrophils # (Auto) 7.2x10^3uL (1.8-7.7) Lymphocytes # (Auto) 2.8x10^3/uL (1.0-4.8) Monocytes # (Auto) 1.3x10^3/uL (0.0-1.1) Eosinophils # (Auto) 0.2x10^3/uL (0.0-0.7) Basophils # (Auto) 0.1x10^3/uL (0.0-0.2) Sodium Level 139mmol/L (136-145) Potassium Level 3.9mmol/L (3.5-5.1) Chloride Level 103mmol/L (98-107) Carbon Dioxide Level 25mmol/L (21-32) Anion Gap 11 (6-14) Blood Urea Nitrogen 9mg/dL (7-20) Creatinine 0.6mg/dL (0.6-1.0) Estimated GFR (Cockcroft-Gault) 106.7 Glucose Level 159mg/dL (70-99) Calcium Level 8.2mg/dL (8.5-10.1) Glucose (Fingerstick) 143mg/dL (70-99) Laboratory Tests Test 05/21/16 11:19 05/21/16 16:04 05/21/16 20:53 05/22/16 04:55 Glucose (Fingerstick) 143mg/dL (70-99) 123mg/dL (70-99) 162mg/dL (70-99) White Blood Count 11.6x10^3/uL (4.0-11.0) Red Blood Count 3.65x10^6/uL (3.50-5.40) Hemoglobin 11.6g/dL (12.0-15.5) Hematocrit 35.0% (36.0-47.0) Mean Corpuscular Volume 96fL (79-100) Mean Corpuscular Hemoglobin 32pg (25-35) Mean Corpuscular Hemoglobin Concent 33g/dL (31-37) Red Cell Distribution Width 13.8% (11.5-14.5) Platelet Count 242x10^3/uL (140-400) Neutrophils (%) (Auto) 62% (31-73) Lymphocytes (%) (Auto) 24% (24-48) Monocytes (%) (Auto) 12% (0-9) Eosinophils (%) (Auto) 2% (0-3) Basophils (%) (Auto) 1% (0-3) Neutrophils # (Auto) 7.2x10^3uL (1.8-7.7) Lymphocytes # (Auto) 2.8x10^3/uL (1.0-4.8) Monocytes # (Auto) 1.3x10^3/uL (0.0-1.1) Eosinophils # (Auto) 0.2x10^3/uL (0.0-0.7) Basophils # (Auto) 0.1x10^3/uL (0.0-0.2) Sodium Level 139mmol/L (136-145) Potassium Level 3.9mmol/L (3.5-5.1) Chloride Level 103mmol/L (98-107) Carbon Dioxide Level 25mmol/L (21-32) Anion Gap 11 (6-14) Blood Urea Nitrogen 9mg/dL (7-20) Creatinine 0.6mg/dL (0.6-1.0) Estimated GFR (Cockcroft-Gault) 106.7 Glucose Level 159mg/dL (70-99) Calcium Level 8.2mg/dL (8.5-10.1) Test 05/22/16 07:45 Glucose (Fingerstick) 143mg/dL (70-99) Microbiology 05/18/16 Urine Culture - Final, Complete 05/18/16 Urine Culture Result 1 (JARVIS) - Final, Complete 05/18/16 Antimicrobic Susceptibility - Final, Complete Medications Current Medications Sodium Chloride (Iv Sodium Chloride 0.9% 1000ml Bag) 1,000 ml @ 1,000 mls/hr 1X ONCE IV Last administered on 05/18/16 11:46; Start 05/18/16 at 11:45; Stop 05/18/16 at 12:44; Status DC Metoclopramide HCl (Reglan) 10 mg 1X ONCE IV Last administered on 05/18/16 11 :48; Start 05/18/16 at 11:45; Stop 05/18/16 at 11:46; Status DC Fentanyl Citrate (Fentanyl 2ml Vial) 50 mcg 1X ONCE IV Last administered on 11:47; Start 05/18/16 at 11:45; Stop 05/18/16 at 11:46; Status DC Iohexol (Omnipaque 300 Mg/ml) 75 ml 1X ONCE IV Last administered on 05/18/16 12:34; Start 05/18/16 at 12:15; Stop 05/18/16 at 12:16; Status DC Info (Do NOT chart on this entry -- for MONITORING) 1 each PRN DAILY PRN MC SEE COMMENTS; Start 05/18/16 at 12:30; Stop 05/20/16 at 12:29; Status DC Fentanyl Citrate (Fentanyl 2ml Vial) 50 mcg PRN Q15MIN PRN IV PAIN GREATER THAN 3/10; Start 05/18/16 at 12:30; Stop 05/19/16 at 12:29; Status DC Dicyclomine HCl (Bentyl) 10 mg 1X ONCE PO Last administered on 05/18/16 14:11 ; Start 05/18/16 at 14:00; Stop 05/18/16 at 14:01; Status DC Ondansetron HCl (Zofran) 4 mg PRN Q8HRS PRN IV NAUSEA/VOMITING; Start 05/18/16 at 17:00; Stop 05/19/16 at 16:59; Status DC Acetaminophen (Tylenol) 650 mg PRN Q4HRS PRN PO FEVER; Start 05/18/16 at 17:00 ; Stop 05/19/16 at 16:59; Status DC Ketorolac Tromethamine (Toradol) 10 mg PRN QID PRN IV PAIN Last administered on 05/19/16 20:17; Start 05/18/16 at 17:00; Stop 05/20/16 at 18:31; Status DC Sucralfate (Carafate) 1 gm QIDACHS PO Last administered on 05/22/16 08:29; Start 05/18/16 at 21:30 Pantoprazole Sodium 40 mg 40 mg BIDAC PO Last administered on 05/22/16 08:29; Start 05/19/16 at 07:30 Multivitamins/ Thiamine HCl/ Folic Acid/Sodium Chloride (Infuvite Adult/ Iv Sodium Chloride 0.9% 1000ml Bag) 1,011.2 ml @ 100 mls/ hr DAILY IV Last administered on 05/21/16 08:32; Start 05/19/16 at 09:00; Stop 05/22/16 at 04:10 ; Status DC Lorazepam 2 mg 2 mg Q6H PO Last administered on 05/19/16 09:48; Start at 21:30; Stop 05/20/16 at 03:31; Status DC Ceftriaxone Sodium 2 gm/ Sodium Chloride 100 ml @ 200 mls/hr Q24H IV Last administered on 05/21/16 21:52; Start 05/18/16 at 21:30 Lactated Ringer's 1,000 ml @ 75 mls/hr 1X ONCE IV Last administered on 16:42; Start 05/19/16 at 17:00; Stop 05/20/16 at 06:19; Status DC Propofol 20 ml @ As Directed STK-MED ONCE IV ; Start 05/19/16 at 17:59; Stop at 18:00; Status DC Sincalide/Sodium Chloride (Kinevac/Iv Sodium Chloride 0.9% 50ml) 30 ml @ 120 mls/hr 1X ONCE IV Last administered on 05/20/16 11:31; Start 05/20/16 at 11: 00; Stop 05/20/16 at 11:14; Status DC Sevoflurane (Ultane) 60 ml STK-MED ONCE IH ; Start 05/20/16 at 13:38; Stop 05/20 at 13:39; Status DC Midazolam HCl (Versed) 2 mg STK-MED ONCE .ROUTE ; Start 05/20/16 at 13:39; Stop 05/20/16 at 13:40; Status DC Fentanyl Citrate (Fentanyl 2ml Vial) 100 mcg STK-MED ONCE .ROUTE ; Start at 13:39; Stop 05/20/16 at 13:40; Status DC Rocuronium [place] 50 mg 50 mg STK-MED ONCE .ROUTE ; Start 05/20/16 at 13:39; Stop 05/20/16 at 13:40; Status DC Propofol (Diprivan) 20 ml @ As Directed STK-MED ONCE IV ; Start 05/20/16 at 13: 39; Stop 05/20/16 at 13:40; Status DC Dexamethasone Sodium Phosphate (Decadron) 20 mg STK-MED ONCE .ROUTE ; Start at 13:39; Stop 05/20/16 at 13:40; Status DC Dexamethasone Sodium Phosphate (Decadron) 20 mg STK-MED ONCE .ROUTE ; Start at 13:39; Stop 05/20/16 at 13:40; Status DC Ondansetron HCl (Zofran) 4 mg STK-MED ONCE .ROUTE ; Start 05/20/16 at 13:40; Stop 05/20/16 at 13:41; Status DC Lidocaine HCl 100 mg STK-MED ONCE .ROUTE ; Start 05/20/16 at 13:40; Stop at 13:41; Status DC Dexamethasone Sodium Phosphate (Decadron) 20 mg STK-MED ONCE .ROUTE ; Start at 13:40; Stop 05/20/16 at 13:41; Status DC Rocuronium [place] (Zemuron) 100 mg STK-MED ONCE .ROUTE ; Start 05/20/16 at 14: 02; Stop 05/20/16 at 14:03; Status DC Fentanyl Citrate (Fentanyl 5ml Vial) 250 mcg STK-MED ONCE .ROUTE ; Start at 14:04; Stop 05/20/16 at 14:05; Status DC Ondansetron HCl (Zofran) 4 mg PRN Q6HRS PRN IV Nausea; Start 05/20/16 at 14:45 ; Stop 05/20/16 at 20:00; Status DC Fentanyl Citrate (Fentanyl 2ml Vial) 25 mcg PRN Q5MIN PRN IV MILD PAIN; Start 05/20/16 at 14:45; Stop 05/20/16 at 20:00; Status DC Fentanyl Citrate (Fentanyl 2ml Vial) 50 mcg PRN Q5MIN PRN IV MODERATE PAIN Last administered on 05/20/16 19:27; Start 05/20/16 at 14:45; Stop 05/20/16 at 20:00; Status DC Morphine Sulfate 1 mg 1 mg PRN Q10MIN PRN IV SEVERE PAIN; Start 05/20/16 at 14: 45; Stop 05/20/16 at 20:00; Status DC Lactated Ringer's (Iv Lactated Ringers) 1,000 ml @ 30 mls/hr Q24H IV Last administered on 05/20/16 16:25; Start 05/20/16 at 14:42; Stop 05/21/16 at 02:41 ; Status DC Lidocaine HCl 2 ml 1X PRN PRN ID IV START; Start 05/20/16 at 14:45; Stop at 20:00; Status DC Hydromorphone HCl (Dilaudid) 0.5 mg PRN Q10MIN PRN IV SEV PAIN,Second choice; Start 05/20/16 at 14:45; Stop 05/20/16 at 20:00; Status DC Prochlorperazine Edisylate 5 mg 5 mg PACU PRN PRN IV NAUSEA; Start 05/20/16 at 14:45; Stop 05/20/16 at 20:00; Status DC Albumin Human (Plasmanate) 0 ml @ As Directed STK-MED ONCE IV ; Start 05/20/16 at 14:43; Stop 05/20/16 at 14:44; Status DC Cellulose 1 each STK-MED ONCE .ROUTE ; Start 05/20/16 at 16:17; Stop 05/20/16 at 16:18; Status DC Bupivacaine HCl/ Epinephrine Bitart (Sensorcain-Mpf Epi 0.5%-1:047141) 30 ml STK -MED ONCE .ROUTE Last administered on 05/20/16 17:27; Start 05/20/16 at 16:17 ; Stop 05/20/16 at 16:18; Status DC Iohexol (Omnipaque 300 Mg/ml) 50 ml STK-MED ONCE .ROUTE Last administered on 17:27; Start 05/20/16 at 16:17; Stop 05/20/16 at 16:18; Status DC Dexamethasone Sodium Phosphate (Decadron) 20 mg STK-MED ONCE .ROUTE ; Start at 17:20; Stop 05/20/16 at 17:21; Status DC Neostigmine Methylsulfate 5 mg STK-MED ONCE .ROUTE ; Start 05/20/16 at 18:17; Stop 05/20/16 at 18:18; Status DC Sevoflurane (Ultane) 60 ml STK-MED ONCE IH ; Start 05/20/16 at 18:17; Stop 05/20 at 18:18; Status DC Glycopyrrolate (Robinul) 1 mg STK-MED ONCE .ROUTE ; Start 05/20/16 at 18:17; Stop 05/20/16 at 18:18; Status DC Oxycodone HCl (Roxicodone) 10 mg PRN Q6HRS PRN PO PAIN Last administered on 08:30; Start 05/20/16 at 18:30 Info (Do NOT chart on this placeholder) 1 each PRN 1X PRN MC SEE COMMENTS; Start 05/21/16 at 12:15; Status UNV Influenza Virus Vaccine Quadrival (Fluarix Quad 0418-7690 Syringe) 0.5 ml ONCE ONCE VAX IM Last administered on 05/21/16 20:26; Start 05/21/16 at 14:00; Stop 05/21/16 at 14:01; Status DC Multivitamins (Thera M Plus) 1 tab DAILY PO Last administered on 05/22/16 08: 29; Start 05/22/16 at 09:00 Folic Acid (Folic Acid) 1 mg DAILY PO Last administered on 05/22/16 08:29; Start 05/22/16 at 09:00 Thiamine HCl (Vitamin B-1) 100 mg DAILY PO Last administered on 05/22/16 08:29 ; Start 05/22/16 at 09:00 Vitals/I & O Vital Sign - Last 24 Hours 05/21/16 05/21/16 05/21/16 05/21/16 10:45 12:07 15:00 18:16 Temp 98.3 98.2 98.3 98.2 Pulse 70 83 Resp 14 15 B/P 94/58 111/58 Pulse Ox 93 93 O2 Delivery Room Air Room Air Room Air Room Air O2 Flow Rate 88.0 05/21/16 05/21/16 05/21/16 05/21/16 19:00 20:00 20:30 23:30 Temp 99.3 100.2 99.3 100.2 Pulse 95 91 Resp 17 19 B/P 125/68 110/61 Pulse Ox 93 91 O2 Delivery Room Air Room Air Room Air Room Air 05/22/16 05/22/16 05/22/16 05/22/16 01:23 01:28 02:33 03:30 Temp 99.5 99.2 99.5 99.2 Pulse 93 Resp 15 15 18 B/P 115/52 Pulse Ox 91 94 91 O2 Delivery Room Air Room Air Room Air 05/22/16 05/22/16 07:00 08:30 Temp 98.8 98.8 Pulse 90 Resp 14 B/P 138/61 Pulse Ox 92 O2 Delivery Room Air Room Air Intake and Output 05/21/16 05/21/16 05/22/16 15:00 23:00 07:00 Intake Total 320 ml Output Total 200 ml 525 ml Balance -200 ml -205 ml MICHELLE LIRA III DO May 22, 2016 08:58
[2016-05-22] MEDS ORDERED: FOLIC ACID 1 MG TABLET PO SCH (09:00)
[2016-05-22] MEDS ORDERED: MULTIVITAMIN with MINERAL TABLET. PO SCH (09:00)
[2016-05-22] MEDS ORDERED: THIAMINE 100 MG TABLET. PO SCH (09:00)
[2016-05-22 11:00] VITALS: BP 119/64
--- NOTE | 2016-05-22 11:24 | PDOC ---
Provider Note Provider Note home today f/u with DINESH Reyes MD May 22, 2016 11:24
--- NOTE | 2016-05-24 13:23 | PATHOLOGY ---
PATHOLOGY REPORT * * * * * * * * FINAL DIAGNOSIS: A. Gallbladder, laparoscopic cholecystectomy: - Chronic cholecystitis. B. Liver biopsy: - Results to be reported separately. COMMENT: There are no calculi identified within the gallbladder lumen or specimen container. Sections of the gallbladder show mild chronic inflammation. The liver biopsy results will be reported separately. (JPM:csd; d/t: 05/24/2016) REPORT ELECTRONICALLY SIGNED BY: José Miguel Wheeler M.D. DATE/TIME: 05/24/2016 13:22 * * * * * * * * GROSS PATHOLOGY: A. Received in formalin labeled "Carolyn Foley, gallbladder sac with contents," is a 7.1 x 2.7 x 1.5 cm, previously punctured gallbladder with pink-calloway to adipose covered serosal surfaces. Opening the gallbladder reveals a velvety, bile-stained mucosa and an average wall thickness of 0.1 cm. Calculi are not present and no masses are noted grossly. Operating Systems Specialist sections from the body and fundus are submitted along with the proximal margin in cassette A1. B. Received in formalin labeled "Carolyn Folye, liver biopsy," are three distinct needle cores of calloway soft tissue ranging from 0.7 to 1.6 cm in length, which are submitted entirely in cassette B1. (CAA; 05/21/2016) INITIAL CPT CODE(S): A; 23097 B; 80794, 94066, 09074, 77160, 65652, 67563 Professional services performed [place] [address] Technical services performed by [facility] at [address] [place] [address], [facility] [address] [address]. SPECIMEN(S) RECEIVED: A.Gallbladder sac with contents B.Liver biopsy CLINICAL HISTORY: Biliary dyskinesia, cirrhosis of liver PATIENT: CAROLYN FOLEY /AGE: [id number] 1965 (Age: 50) PATIENT #: [id number] ALT CASE #: SPECIMEN COLLECTION DATE: 05/20/2016 SPECIMEN RECEIVED DATE: 05/21/2016 [facility] - [address] [place] [address] - PHONE: [phone] * * * END OF REPORT * * *
--- NOTE | 2016-05-26 12:09 | DS ---
DATE OF DISCHARGE: 05/22/2016 ADMISSION DIAGNOSES: Symptomatic gallstones and urinary tract infection. DISCHARGE DIAGNOSIS: Postop day #2, laparoscopic cholecystectomy. HOSPITAL COURSE: The patient is a pleasant 50-year-old female presented with abdominal pain. She was noted to have gallstones. She was admitted. We consulted general surgery. She was taken for a laparoscopic cholecystectomy. She did well. We also found a UTI, we gave her some antibiotics. She is doing well. We plan to discharge home. DISPOSITION: Home. ACTIVITY: As tolerated. DIET: Low sodium. MEDICATIONS: Please see the MRAD. TOTAL TIME ON DISCHARGE: 36 minutes. MICHELLE LIRA DO DR: JACKIE/luann JOB#: [id number] / [id number]
== END 2016-05-22 12:30 | disposition home or self-care (01) | DRG 418 ==
LOC: ER 10:35 → ED HOLD 15:58 → 5 SOUTH 19:46 → OBSVTOIN 05-20 19:15
PROVIDERS: ADMIT Internal Medicine Hematology & Oncology; ATTEND Internal Medicine Hematology & Oncology
PROC: 0DJ08ZZ Inspection of Upper Intestinal Tract, Via Natural or Artificial Opening Endoscopic (ICD-10-PCS; 2016-05-19)
PROC: 0FB04ZX Excision of Liver, Percutaneous Endoscopic Approach, Diagnostic (ICD-10-PCS; 2016-05-20)
PROC: BF101ZZ Fluoroscopy of Bile Ducts using Low Osmolar Contrast (ICD-10-PCS; 2016-05-20)
PROC: 0FT44ZZ Resection of Gallbladder, Percutaneous Endoscopic Approach (ICD-10-PCS; principal; 2016-05-20 15:00)
DX: K82.8 Other specified diseases of gallbladder (principal); E87.1 Hypo-osmolality and hyponatremia; E11.9 Type 2 diabetes mellitus without complications; F10.10 Alcohol abuse, uncomplicated; F17.210 Nicotine dependence, cigarettes, uncomplicated; I10 Essential (primary) hypertension; I25.10 Atherosclerotic heart disease of native coronary artery without angina pectoris; K29.20 Alcoholic gastritis without bleeding; K74.60 Unspecified cirrhosis of liver; K76.0 Fatty (change of) liver, not elsewhere classified; Z82.5 Family history of asthma and other chronic lower respiratory diseases; Z91.19 Patient's noncompliance with other medical treatment and regimen; Z95.5 Presence of coronary angioplasty implant and graft
CPT/HCPCS: 36415; 74177; 74300; 76700; 78226; 80048; 80053; 80074; 81001; 81025; 82150; 82947; 83690; 85027; 87086; 87186; 88304; 88307; 88313; 90686; 93005; 96374; 96375; A9537; C1782; G0378; G0379; J0696; J1100; J1885; J2250; J2405; J2704; J2710; J2765; J2805; J3010; J3490; J7030; J7120; P9045; Q9967